=== PATIENT | female | born 1930 | race Caucasian/White ===

== ENCOUNTER 2018-05-09 16:38 | Inpatient (IN) | payer OTHER ==
--- NOTE | 2018-05-09 16:47 | PDOC ---
Rapid Medical Evaluation Chief Complaint: Pain Time Seen by Provider: 05/09/18 16:43 Medical Evaluation: Allergies Allergy/AdvReac Type Severity Reaction Status Date / Time fish derived Allergy Verified 05/09/18 16:43 shellfish derived Allergy Verified 05/09/18 16:43 aspirin AdvReac Intermediate Verified 05/09/18 16:43 05/09/18 16:43 Pt presents to the ED for evaluation of abdominal pain starting this morning. She states she took omeprazole this morning with no relief of her symptoms. PSHx of cholecystectomy. Admits to nausea and vomiting Exam: TTP of the Epigastric region Orders; Labs, urine, IV Pt to proceed to the ED for further evaluatin Discharge Disposition - Diagnosis Abdominal pain Qualifiers: Abdominal location: epigastric Qualified Code(s): R10.13 - Epigastric pain - Referrals - Patient Instructions - Post Discharge Activity
[2018-05-09 17:14] LABS: BASO % 0.2 % (0-2.0); EOS % 1.2 % (0-4.5); HEMATOCRIT 37.9 % (32.4-45.2); HEMOGLOBIN 12.5 GM/dL (10.7-15.3); LYMPH % 12.4 % (8-40); MCH 28.6 pg (25.7-33.7); MEAN CELL VOLUME 86.6 fl (80-96); MEAN PLT VOLUME 8.8 fl (7.5-11.1); MONO % 6.7 % (3.8-10.2); NEUT % 79.5 % (42.8-82.8); PLATELET COUNT 166 K/MM3 (134-434); RBC 4.37 M/mm3 (3.60-5.2); WHITE BLOOD COUNT 6.8 K/mm3 (4.0-10.0)
[2018-05-09 17:18] LABS: EPI CELLS 1.4 /HPF (0-5); URINE APPEARANCE CLEAR; URINE BACTERIA 5.2 /hpf (NEGATIVE); URINE BILIRUBIN NEGATIVE (NEGATIVE); URINE CASTS 6 /hpf (0-8); URINE COLOR YELLOW; URINE GLUCOSE (UA) NEGATIVE (NEGATIVE); URINE KETONE NEGATIVE (NEGATIVE); URINE LEUK ESTERASE 2+ (NEGATIVE); URINE NITRITE NEGATIVE (NEGATIVE); URINE PROTEIN NEGATIVE (NEGATIVE); URINE RBC 3 /hpf (0-4); URINE UROBILINOGEN 0.2 mg/dL (0.2-1.0); URINE WBC 30 /hpf (0-5)
[2018-05-09 17:35] LABS: ALBUMIN 3.7 g/dl (3.4-5.0); ALK PHOS 104 U/L (45-117); ANION GAP 3 MMOL/L (8-16); BLOOD UREA NITROGEN 14 mg/dL (7-18); CALCIUM 8.5 mg/dL (8.5-10.1); CHLORIDE 104 mmol/L (98-107); CO2 29 mmol/L (21-32); CREATININE 0.8 mg/dL (0.55-1.3); GLUCOSE,RANDOM 141 mg/dL (74-106); LIPASE 139 U/L (73-393); SGOT/AST 31 U/L (15-37); SGPT/ALT 32 U/L (13-61); SODIUM 136 mmol/L (136-145); TOT PROT 7.3 g/dl (6.4-8.2)
--- NOTE | 2018-05-09 18:44 | PDOC ---
History of Present Illness - General History Source: Patient, Family Exam Limitations: No Limitations - History of Present Illness Initial Comments: 05/09/18 19:02 The patient is an 87 year old female with a past medical history of diabetes, HTN, and GERD here today for evaluation of abdominal pain. The patients granddaughter reports that the patient has been having abdominal pain in the left upper and lower quadrant, a headache, mild nausea, body aches, and bloating. Patient reports that the abdominal pain is worse with eating and that her last bowel movement was this morning and was small but normal. Patients daughter notes that the patients son is staying with the patient and has a cold. Patient denies headache, lightheadedness. Denies fever, chills. Denies chest pain, shortness of breath. Denies nausea, vomiting, diarrhea. Denies urinary symptoms. Allergies: fish derived, shellfish derived, aspirin Surgical history: cholecystectomy <Alex Rivera - Last Filed: 05/09/18 19:38> <Fifi Castrejon - Last Filed: 05/10/18 01:10> - General Chief Complaint: Pain Stated Complaint: ABD PAIN Time Seen by Provider: 05/09/18 16:43 Past History <Alex Rivera - Last Filed: 05/09/18 19:38> - Past Medical History Anemia: No Asthma: No Cancer: No Cardiac Disorders: No CVA: No COPD: No CHF: No Dementia: No Diabetes: Yes (NIDDM) GI Disorders: No Disorders: No HTN: Yes Hypercholesterolemia: No Liver Disease: No Seizures: No Thyroid Disease: No - Surgical History Abdominal Surgery: No Appendectomy: No Cardiac Surgery: No Cholecystectomy: Yes Lung Surgery: No Neurologic Surgery: No Orthopedic Surgery: No - Immunization History Immunization Up to Date: No - Suicide/Smoking/Psychosocial Hx Smoking History: Never smoked Have you smoked in the past 12 months: No Hx Alcohol Use: No Drug/Substance Use Hx: No Substance Use Type: None Hx Substance Use Treatment: No <Fifi Castrejon - Last Filed: 05/10/18 01:10> - Past Medical History Allergies/Adverse Reactions: Allergies Allergy/AdvReac Type Severity Reaction Status Date / Time fish derived Allergy Verified 05/09/18 16:43 shellfish derived Allergy Verified 05/09/18 16:43 aspirin AdvReac Intermediate Verified 05/09/18 16:43 Home Medications: Ambulatory Orders Glipizide 10 mg PO DAILY 12/26/13 Amlodipine Besylate 5 mg PO DAILY 10/02/14 Acetaminophen [Tylenol -] 1,000 mg PO Q6H #100 tablet 02/03/16 Mag Hydrox/Al Hydrox/Simeth [Mylanta Oral Suspension -] 30 ml PO Q6H PRN #1 bot 02/03/16 Apixaban [Eliquis -] 2.5 mg PO BID 01/22/18 Calcium 600-Vit D3 200 Tablet 1 tab PO DAILY 01/22/18 Colace 100 mg PO BID 01/22/18 Januvia 100 mg PO DAILY 01/22/18 Metoprolol Tartrate 50 mg PO BID 01/22/18 Omeprazole 40 mg PO HS 01/22/18 Zocor 20 mg PO HS 01/22/18 hydrALAZINE HCL 10 mg PO DAILY 01/22/18 Review of Systems - Review of Systems Able to Perform ROS?: Yes Comments:: 05/09/18 19:03 GENERAL/CONSTITUTIONAL: +headache. No fever or chills. No weakness. HEAD, EYES, EARS, NOSE AND THROAT: No change in vision. No ear pain or discharge. No sore throat. GASTROINTESTINAL: +nausea +abdominal pain. No vomiting, diarrhea or constipation. GENITOURINARY: No dysuria, frequency, or change in urination. CARDIOVASCULAR: No chest pain or shortness of breath. RESPIRATORY: No cough, wheezing, or hemoptysis. MUSCULOSKELETAL: No joint or muscle swelling or pain. No neck or back pain. SKIN: No rash NEUROLOGIC: No headache, vertigo, loss of consciousness, or change in strength/ sensation. ENDOCRINE: No increased thirst. No abnormal weight change. HEMATOLOGIC/LYMPHATIC: No anemia, easy bleeding, or history of blood clots. ALLERGIC/IMMUNOLOGIC: No hives or skin allergy. <Alex Rivera - Last Filed: 05/09/18 19:38> *Physical Exam - Vital Signs Last Vital Signs Temp Pulse Resp BP Pulse Ox 98.4 F 98 H 18 148/75 100 05/09/18 16:43 05/09/18 16:43 05/09/18 16:43 05/09/18 16:43 05/09/18 16:43 - Physical Exam Comments: 05/09/18 19:03 Constitutional: Awake, alert, oriented. No acute distress. Head: Normocephalic. Atraumatic Eyes: PERRL. EOMI. Conjunctivae are not pale. ENT: Mucous membranes are moist and intact. Posterior pharynx without exudates or erythema. Uvula midline. Neck: Supple. Full ROM. No lymphadenopathy. Cardiovascular: Regular rate. Regular rhythm. S1, S2 regular. Distal pulses are 2+ and symmetric. Pulmonary/Chest: No evidence of respiratory distress. Clear to auscultation bilaterally No wheezing, rales or rhonchi. Abdominal: +epigastric, left upper quadrant, left lower quadrant, and suprapubic pain. Soft and non-distended. No rebound, guarding or rigidity. No organomegaly. No palpable masses. Good bowel sounds. Back: No CVA tenderness. Musculoskeletal: No edema. No cyanosis. No clubbing. Full range of motion in all extremities. No calf tenderness. Radial/pedal pulses are intact and 2+ bilaterally Skin: Skin is warm and dry. No petechiae. No purpura. Neurological: Alert and oriented to person, place, and time. Cranial nerves II -XII are grossly intact. Normal speech. Strength is grossly symmetric. No sensory deficits. Psychiatric: Good eye contact. Normal interaction, affect and behavior. <Alex Rivera - Last Filed: 05/09/18 19:38> - Vital Signs Last Vital Signs Temp Pulse Resp BP Pulse Ox 98.4 F 98 H 18 148/75 100 05/09/18 16:43 05/09/18 16:43 05/09/18 16:43 05/09/18 16:43 05/09/18 16:43 <Fifi Castrejon - Last Filed: 05/10/18 01:10> Heart Score/ECG Review - ECG Intrepretation Comment:: 05/09/18 19:40 sinus at 93, poor r wave progressin, baseline artifact, no acute st/t wave findings <Fifi Castrejon - Last Filed: 05/10/18 01:10> ED Treatment Course - LABORATORY CBC & Chemistry Diagram: 05/09/18 16:51 05/09/18 16:51 - ADDITIONAL ORDERS Additional order review: Laboratory Results 05/09/18 05/09/18 16:57 16:51 Sodium 136 Potassium 4.0 Chloride 104 Carbon Dioxide 29 Anion Gap 3 L BUN 14 Creatinine 0.8 Creat Clearance w eGFR 67.54 Random Glucose 141 H Calcium 8.5 Total Bilirubin 1.0 AST 31 ALT 32 Alkaline Phosphatase 104 Total Protein 7.3 Albumin 3.7 Lipase 139 Urine Color Yellow Urine Appearance Clear Urine pH 6.0 Ur Specific [place] 1.019 Urine Protein Negative Urine Glucose (UA) Negative Urine Ketones Negative Urine Blood Negative Urine Nitrite Negative Urine Bilirubin Negative Urine Urobilinogen 0.2 Ur Leukocyte Esterase 2+ H Urine WBC (Auto) 30 Urine RBC (Auto) 3 Urine Casts (Auto) 6 U Epithel Cells (Auto) 1.4 Urine Bacteria (Auto) 5.2 05/09/18 16:51 RBC 4.37 MCV 86.6 MCHC 33.0 RDW 14.0 MPV 8.8 Neutrophils % 79.5 Lymphocytes % 12.4 Monocytes % 6.7 Eosinophils % 1.2 D Basophils % 0.2 <Alex Rivera - Last Filed: 05/09/18 19:38> - LABORATORY CBC & Chemistry Diagram: 05/09/18 16:51 05/09/18 16:51 - ADDITIONAL ORDERS Additional order review: Laboratory Results 05/09/18 05/09/18 16:57 16:51 Sodium 136 Potassium 4.0 Chloride 104 Carbon Dioxide 29 Anion Gap 3 L BUN 14 Creatinine 0.8 Creat Clearance w eGFR 67.54 Random Glucose 141 H Calcium 8.5 Total Bilirubin 1.0 AST 31 ALT 32 Alkaline Phosphatase 104 Total Protein 7.3 Albumin 3.7 Lipase 139 Urine Color Yellow Urine Appearance Clear Urine pH 6.0 Ur Specific [place] 1.019 Urine Protein Negative Urine Glucose (UA) Negative Urine Ketones Negative Urine Blood Negative Urine Nitrite Negative Urine Bilirubin Negative Urine Urobilinogen 0.2 Ur Leukocyte Esterase 2+ H Urine WBC (Auto) 30 Urine RBC (Auto) 3 Urine Casts (Auto) 6 U Epithel Cells (Auto) 1.4 Urine Bacteria (Auto) 5.2 05/09/18 16:51 RBC 4.37 MCV 86.6 MCHC 33.0 RDW 14.0 MPV 8.8 Neutrophils % 79.5 Lymphocytes % 12.4 Monocytes % 6.7 Eosinophils % 1.2 D Basophils % 0.2 <Fifi Castrejon - Last Filed: 05/10/18 01:10> Medical Decision Making - Medical Decision Making 05/09/18 18:57 a/p: 87yo female bib her granddaughter for abd pain x 1 day assoc with nausea and body aches -son has a cold at home -nausea today -last bm today -denies dysuria -epigastric and L sided abd pain -labs sent from [facility] reviewed - uti, no elevated lft -will add trop -will obtain ekg, cxr, ct abd/pelvis -will hydrate, maalox, zofran, tylenol for pain -will monitor and reassess 05/09/18 20:45 cxr clear lipase negaitve 05/09/18 21:46 flu negative 05/10/18 00:38 pt is s/p travon small bowel ileus and enteritis on ct pt still with mild abd pain, no nausea now will place in obs for bowel rest 05/10/18 00:45 discussed results with the patient. will place in obs for npo, ivf hydration, bowel rest 05/10/18 01:10 case discussed with LORENA who accepts pt to service <Fifi Castrejon - Last Filed: 05/10/18 01:10> *DC/Admit/Observation/Transfer - Attestations Scribe Attestion: 05/09/18 19:38 Documentation prepared by NORMAN Serna, acting as biomedical scientist for Fifi Castrejon DO. <Alex Rivera - Last Filed: 05/09/18 19:38> - Discharge Dispostion Decision to Admit order: Yes - Attestations Physician Attestion: 05/10/18 00:40 I, Dr. Fifi Castrejon DO, attest that this document has been prepared under my direction and personally reviewed by me in its entirety. I further attest, that it accurately reflects all work, treatment, procedures and medical decision -making performed by me. <Fifi Castrejon - Last Filed: 05/10/18 01:10> Diagnosis at time of Disposition: Ileus, unspecified, UTI (urinary tract infection) Abdominal pain Qualifiers: Abdominal location: epigastric Qualified Code(s): R10.13 - Epigastric pain - Discharge Dispostion Condition at time of disposition: Fair
[2018-05-09] MEDS ORDERED: SODIUM CHLORIDE 0.9% 1000 ML INFUS.BAG IV ONE (18:54)
[2018-05-09] MEDS ORDERED: ACETAMINOPHEN 1000 MG/100 ML VIAL (NON FORMULARY) IVPB ONE (18:54)
[2018-05-09] MEDS ORDERED: MAG HYDROX/AL HYDROX/SIMETH 30 ML UNIT-DOSE CUP PO ONE (18:54)
[2018-05-09] MEDS ORDERED: ONDANSETRON 4 MG/2 ML VIAL IVPUSH ONE (18:54)
[2018-05-09] MEDS ORDERED: CEFTRIAXONE 1 GM in DEXTROSE 5%-WATER - 100 ML IVPB ONE (18:55)
[2018-05-09] MEDS ORDERED: ONDANSETRON 4 MG/2 ML VIAL ONE (20:12)
[2018-05-09] MEDS ORDERED: MAG HYDROX/AL HYDROX/SIMETH 30 ML UNIT-DOSE CUP ONE (20:12)
[2018-05-09] MEDS ORDERED: CEFTRIAXONE 1 GM/50 ML BAG ONE (20:12)
[2018-05-09] MEDS ORDERED: ACETAMINOPHEN INJECTION 100 ML IVPB ONE (20:12)
--- NOTE | 2018-05-10 01:06 | PN ---
Teaching Attending Note Name of Resident: Hernán Alfaro ATTENDING PHYSICIAN STATEMENT I saw and evaluated the patient. I reviewed the resident's note and discussed the case with the resident. I agree with the resident's findings and plan as documented. SUBJECTIVE: Patient is an 87 year old woman with a past medical history of NIDDM, HTN, RLE DVT and PE (on Eliquis) and GERD here today for evaluation of abdominal pain. The patients granddaughter reports that the patient has been having abdominal pain in the left upper and lower quadrant, a headache, mild nausea, body aches, and bloating. Patient reports that the abdominal pain is worse with eating and that her last bowel movement was this morning and was small but normal. Patient s daughter notes that the patients son is staying with the patient and has a cold. Patient denies headache, lightheadedness. Denies fever, chills. Denies chest pain, shortness of breath. Denies nausea, vomiting, diarrhea. Denies urinary symptoms. OBJECTIVE: Alert Vital Signs Period Temp Pulse Resp BP Sys/Dobbins Pulse Ox Last 24 Hr 98.4 F 98 18 148/75 100 HEENT: No Jaundice, eye redness or discharge, PERRLA, EOMI. Normocephalic, atraumatic. External ears are normal and hearing is grossly intact. No nasal discharge. Neck: Supple, nontender. No palpable adenopathy or thyromegaly. No JVD Chest: Good effort. Clear to auscultation and percussion. Heart: Regular. No S3, rub or murmur Abdomen: Not distended, soft, epigastric, periumblical and lower abdominal tenderness and no HSM. No rebound or guarding. Normal bowel sounds. Ext: Peripheral pulses intact. No leg edema. Skin: Warm and dry. No petechiae, rash or ecchymosis. Neuro: Alert. Oriented x3. CN 2-12 grossly intact. Sensation grossly intact in all four extremities and DTR are symmetric. Psych: Appropriate mood and affect. Good insight. Current Medications Generic Name Dose Route Start Last Admin Trade Name Freq PRN Reason Stop Dose Admin Sodium Chloride 1,000 mls @ 75 mls/hr 05/10/18 00:45 05/10/18 02:11 Normal Saline - IV 75 mls/hr ASDIR MICHAEL Administration Home Medications Medication Instructions Recorded Glipizide 10 mg PO DAILY 12/26/13 Amlodipine Besylate 5 mg PO DAILY 10/02/14 Acetaminophen [Tylenol -] 1,000 mg PO Q6H #100 tablet 02/03/16 Mag Hydrox/Al Hydrox/Simeth 30 ml PO Q6H PRN #1 bot 02/03/16 [Mylanta Oral Suspension -] Apixaban [Eliquis -] 2.5 mg PO BID 01/22/18 Calcium 600-Vit D3 200 Tablet 1 tab PO DAILY 01/22/18 Colace 100 mg PO BID 01/22/18 Januvia 100 mg PO DAILY 01/22/18 Metoprolol Tartrate 50 mg PO BID 01/22/18 Omeprazole 40 mg PO HS 01/22/18 Zocor 20 mg PO HS 01/22/18 hydrALAZINE HCL 10 mg PO DAILY 01/22/18 Abnormal Lab Results 05/09/18 05/09/18 16:51 16:57 Anion Gap 3 L Random Glucose 141 H Ur Leukocyte Esterase 2+ H ASSESSMENT AND PLAN: 1. Small bowel ileus and enteritis - CT scan of the abdomen and pelvis showed small bowel enteritis and ileus. May be a consequence of diabetic gastropathy. There is no evidence of infectious enteritis. Has retroperitoneal lymphadenopathy which will be monitored. Will keep her NPO, treat with IV protonix and zofran PRN. UTI being treated with Rocephin. No acute abnormality on CXR or EKG. Continue IV NS and consult GI. 2. DM For now, we will hold the home diabetes drugs and implement sliding scale insulin regimen. Provide comprehensive diabetes care with patient teaching and counseling about the importance of adherence to prescribed diabetes regimen, euglycemia, eye care and foot care. 3. Hypertension - Restart outpatient antihypertensive drugs and revise regimen to ensure smooth [id number] good BP control. Nonpharmacologic measures to control hypertension like weight loss, salt restriction and exercise discussed. 4. DVT prophylaxis - On Eliquis for PE and DVT 5. Advance directives - Full code
[2018-05-10] MEDS: SODIUM CHLORIDE 1,000 ML IV SCH ×2 (02:11→22:03)
--- NOTE | 2018-05-10 03:15 | HP ---
CHIEF COMPLAINT: abdominal pain PCP: Maryjane Sewell HISTORY OF PRESENT ILLNESS: Pt. is a an 87 y.o F presenting with abdominal pain for 1 day. Pt. states that it has been intermittent lasting ~30min but progressively worsening over the last day. Pt. states that she was nauseous on ED arrival but nausea has decreased since receiving Zofran. Pt. endorses headache(band distribution), generalized muscle and joint pains, decreased PO intake (finishes less than half the plate for "awhile now)," small loose bowel movement yesterday and subjective fever. Pt. denies chills, vomiting ,blood in the stool or urine, dizziness, lightheadedness, numbness/tingling, palpitations , changes in vision, chest pain or shortness of breath. Pt. states that she lives alone with a S[employer]IOR [employer] that visits for a few hours each day. She states she takes her medications everyday as prescribed. ER course was notable for: (1)CT A/P, EKG, CXR, labs, Trop, lipase (2) Zofran, Ceftriaxone, IVF (3)Ofirmev Recent Travel: No PAST MEDICAL HISTORY: NIDDM, HTN, DVTs, PE(last 2015), GERD, Diverticulosis, Hx. 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 Family History: Mom skin cacer @ 89 Allergies fish derived Allergy (Verified 05/09/18 16:43) shellfish derived Allergy (Verified 05/09/18 16:43) aspirin Adverse Reaction (Intermediate, Verified 05/09/18 16:43) HOME MEDICATIONS: Home Medications Medication Instructions Recorded Glipizide 10 mg PO DAILY 12/26/13 Amlodipine Besylate 5 mg PO DAILY 10/02/14 Acetaminophen [Tylenol -] 1,000 mg PO Q6H #100 tablet 02/03/16 Mag Hydrox/Al Hydrox/Simeth 30 ml PO Q6H PRN #1 bot 02/03/16 [Mylanta Oral Suspension -] Apixaban [Eliquis -] 2.5 mg PO BID 01/22/18 Calcium 600-Vit D3 200 Tablet 1 tab PO DAILY 01/22/18 Colace 100 mg PO BID 01/22/18 Januvia 100 mg PO DAILY 01/22/18 Metoprolol Tartrate 50 mg PO BID 01/22/18 Omeprazole 40 mg PO HS 01/22/18 Zocor 20 mg PO HS 01/22/18 hydrALAZINE HCL 10 mg PO DAILY 01/22/18 REVIEW OF SYSTEMS As Per [facility] PHYSICAL EXAMINATION Vital Signs - 24 hr 05/09/18 16:43 Temperature 98.4 F Pulse Rate 98 H Respiratory 18 Rate Blood Pressure 148/75 O2 Sat by Pulse 100 Oximetry (%) GENERAL: Awake, alert, and oriented to person and place only, in no acute distress. HEAD: Normal with no signs of trauma. EYES: Pupils equal, round and reactive to light, extraocular movements intact, sclera anicteric, conjunctiva clear. EARS, NOSE, THROAT: Ears normal, nares patent, oropharynx clear without exudates. Dry mucous membranes. NECK: Normal range of motion, supple without lymphadenopathy, JVD, carotid bruit or masses. LUNGS: Breath sounds equal, bibasilar ronchi. No wheezes. No accessory muscle use. HEART: Regular rate and rhythm, normal S1 and S2 with murmur ABDOMEN: Soft, epigastric tenderness, not distended, hyperactive bowel sounds, no guarding, no rebound, no masses. Right mid clavicular line surgical scar and left sub xyphoid scar MUSCULOSKELETAL: Normal range of motion at all joints. No bony deformities or tenderness. No CVA tenderness. UPPER EXTREMITIES: 2+ radial pulses, warm, well-perfused. No cyanosis. No clubbing. No peripheral edema. LOWER EXTREMITIES: 2+ dorsal pedal pulses, warm, well-perfused. No calf tenderness. No peripheral edema. NEUROLOGICAL: Cranial nerves II-XII intact. Normal speech. PSYCHIATRIC: Cooperative. Good eye contact. Tangential thinking. SKIN: Warm, dry, normal turgor, no rashes or lesions noted, normal capillary refill. Laboratory Results - last 24 hr 05/09/18 05/09/18 05/09/18 16:51 16:51 16:57 WBC 6.8 RBC 4.37 Hgb 12.5 Hct 37.9 MCV 86.6 MCH 28.6 MCHC 33.0 RDW 14.0 Plt Count 166 MPV 8.8 Absolute Neuts (auto) 5.4 Neutrophils % 79.5 Lymphocytes % 12.4 Monocytes % 6.7 Eosinophils % 1.2 D Basophils % 0.2 Nucleated RBC % 0 Sodium 136 Potassium 4.0 Chloride 104 Carbon Dioxide 29 Anion Gap 3 L BUN 14 Creatinine 0.8 Creat Clearance w eGFR 67.54 Random Glucose 141 H Calcium 8.5 Total Bilirubin 1.0 AST 31 ALT 32 Alkaline Phosphatase 104 Troponin I < 0.02 Total Protein 7.3 Albumin 3.7 Lipase 139 Urine Color Yellow Urine Appearance Clear Urine pH 6.0 Ur Specific [place] 1.019 Urine Protein Negative Urine Glucose (UA) Negative Urine Ketones Negative Urine Blood Negative Urine Nitrite Negative Urine Bilirubin Negative Urine Urobilinogen 0.2 Ur Leukocyte Esterase 2+ H Urine WBC (Auto) 30 Urine RBC (Auto) 3 Urine Casts (Auto) 6 U Epithel Cells (Auto) 1.4 Urine Bacteria (Auto) 5.2 Influenza A (Rapid) Influenza B (Rapid) 05/09/18 20:59 WBC RBC Hgb Hct MCV MCH MCHC RDW Plt Count MPV Absolute Neuts (auto) Neutrophils % Lymphocytes % Monocytes % Eosinophils % Basophils % Nucleated RBC % Sodium Potassium Chloride Carbon Dioxide Anion Gap BUN Creatinine Creat Clearance w eGFR Random Glucose Calcium Total Bilirubin AST ALT Alkaline Phosphatase Troponin I Total Protein Albumin Lipase Urine Color Urine Appearance Urine pH Ur Specific [place] Urine Protein Urine Glucose (UA) Urine Ketones Urine Blood Urine Nitrite Urine Bilirubin Urine Urobilinogen Ur Leukocyte Esterase Urine WBC (Auto) Urine RBC (Auto) Urine Casts (Auto) U Epithel Cells (Auto) Urine Bacteria (Auto) Influenza A (Rapid) Negative Influenza B (Rapid) Negative ASSESSMENT/PLAN: Pt. is a an 87 y.o F w/ NIDDM, HTN, DVTs, PE(last 2015), GERD, Diverticulosis, Hx. of colon polyps( last colonoscopy 2012-benign) presenting with abdominal pain for 1 day. #Abdominal pain LFTs wnl Epigastric in location- hold home omeprazole, c/w IV Protonix 40mg daily CT-A/P showed mild intra hepatic duct dilation, absent gallbladder, several segments of small bowel appear mildly thickened and distended, some nodules in the central mesenteric fat suggesting lymph nodes(largest 8 x 5 mm), haziness in mid epigastric mesenteric fat, FOBT - GI consult (Dr. Brown) appreciated Consider avoiding Zofran given prolonged QTc (489) #Positive UA 2+ LE, 30 WBCs will treat for UTI- c/w Ceftriaxone 1 gm daily f/u UCx. Last UTI in 2013- pansensitive #NIDDM f/u A1c- if elevated consider diagnosis of diabetic gastropathy as the etiology for ileus hold oral meds ISS TIDAC BGM TIDAC #HTN c/w home meds ( Metoprolol, Hydralazine, Norvasc)- will need medication reconciliation Last echo (11/30/15): EF: 50%, RV pressure 40-50 mmHg, mild MR, mild-mod. TR, mod. annular calcification, mod. aortic sclerosis #HLD c/w home meds(Zocor) #FEN NS @ 75ml/hr monitor electrolytes and replete as needed NPO except for meds- for bowel rest #DVT Ppx. c/w Eliquis Visit type - Emergency Visit Emergency Visit: Yes ED Registration Date: 05/10/18 Care time: The patient presented to the Emergency Department on the above date and was hospitalized for further evaluation of their emergent condition. - New Patient This patient is new to me today: Yes Date on this admission: 05/10/18 - Critical Care Critical Care patient: No
[2018-05-10] MEDS ORDERED: LACTATED RINGERS SOLUTION 1,000 ML IV SCH (04:45)
[2018-05-10 05:54] VITALS: BMI 25.6
[2018-05-10] MEDS: INSULIN SLIDING SCALE (NOVOLOG) 1 VIAL SQ SCH ×3 (06:04→17:51)
[2018-05-10] MEDS ORDERED: cefTRIAXone SODIUM 1 GM VIAL ONE (09:03)
[2018-05-10] MEDS ORDERED: DEXTROSE 5%-WATER - 50 ML IVPB ONE (09:03)
--- NOTE | 2018-05-10 09:06 | PN ---
Physical Exam: SUBJECTIVE: Patient seen and examined at bedside- no acute events overnight' patient was having slight nausea this AM but no diarrhea or vomiting; thinks her pain is slightly improved but is having reflux symptoms. denies fever/CP/SOB /V OBJECTIVE: Vital Signs Period Temp Pulse Resp BP Sys/Dobbins Pulse Ox Last 24 Hr 98.1 F-98.4 F 93-98 18-18 143-148/75-80 91-100 GENERAL: The patient is awake, alert, and fully oriented, in no acute distress. EYES: PEERLA: EOMI; no scleral icterus NECK: no JVD; no lymphadenopathy LUNGS:CTA B/L; no rales, rhonchi or wheezing HEART: Regular rate and rhythm, S1, S2 without murmur, rub or gallop. ABDOMEN: Soft, slight midline and epigastric tenderness upon palpation; +BS in all 4 quadrants EXTREMITIES: 2+ pulses, warm, well-perfused, no edema. . PSYCH: Normal mood, normal affect. SKIN: Warm, dry, normal turgor, no rashes or lesions noted Laboratory Results - last 24 hr 05/09/18 05/09/18 05/09/18 16:51 16:51 16:57 WBC 6.8 RBC 4.37 Hgb 12.5 Hct 37.9 MCV 86.6 MCH 28.6 MCHC 33.0 RDW 14.0 Plt Count 166 MPV 8.8 Absolute Neuts (auto) 5.4 Neutrophils % 79.5 Lymphocytes % 12.4 Monocytes % 6.7 Eosinophils % 1.2 D Basophils % 0.2 Nucleated RBC % 0 Sodium 136 Potassium 4.0 Chloride 104 Carbon Dioxide 29 Anion Gap 3 L BUN 14 Creatinine 0.8 Creat Clearance w eGFR 67.54 POC Glucometer Random Glucose 141 H Calcium 8.5 Total Bilirubin 1.0 AST 31 ALT 32 Alkaline Phosphatase 104 Troponin I < 0.02 Total Protein 7.3 Albumin 3.7 Lipase 139 Urine Color Yellow Urine Appearance Clear Urine pH 6.0 Ur Specific [place] 1.019 Urine Protein Negative Urine Glucose (UA) Negative Urine Ketones Negative Urine Blood Negative Urine Nitrite Negative Urine Bilirubin Negative Urine Urobilinogen 0.2 Ur Leukocyte Esterase 2+ H Urine WBC (Auto) 30 Urine RBC (Auto) 3 Urine Casts (Auto) 6 U Epithel Cells (Auto) 1.4 Urine Bacteria (Auto) 5.2 Stool Occult Blood Influenza A (Rapid) Influenza B (Rapid) 05/09/18 05/10/18 05/10/18 20:59 03:07 05:37 WBC RBC Hgb Hct MCV MCH MCHC RDW Plt Count MPV Absolute Neuts (auto) Neutrophils % Lymphocytes % Monocytes % Eosinophils % Basophils % Nucleated RBC % Sodium Potassium Chloride Carbon Dioxide Anion Gap BUN Creatinine Creat Clearance w eGFR POC Glucometer 130 Random Glucose Calcium Total Bilirubin AST ALT Alkaline Phosphatase Troponin I Total Protein Albumin Lipase Urine Color Urine Appearance Urine pH Ur Specific [place] Urine Protein Urine Glucose (UA) Urine Ketones Urine Blood Urine Nitrite Urine Bilirubin Urine Urobilinogen Ur Leukocyte Esterase Urine WBC (Auto) Urine RBC (Auto) Urine Casts (Auto) U Epithel Cells (Auto) Urine Bacteria (Auto) Stool Occult Blood Negative Influenza A (Rapid) Negative Influenza B (Rapid) Negative Active Medications Generic Name Dose Route Start Last Admin Trade Name Freq PRN Reason Stop Dose Admin Amlodipine Besylate 5 mg 05/10/18 10:00 Norvasc - PO DAILY [facility] Apixaban 2.5 mg 05/10/18 10:00 Eliquis - PO BID [facility] Atorvastatin Calcium 10 mg 05/10/18 22:00 Lipitor - PO HS MICHAEL Docusate Sodium 100 mg 05/10/18 10:00 Colace - PO BID [facility] Hydralazine HCl 10 mg 05/10/18 10:00 Apresoline - PO DAILY [facility] Sodium Chloride 1,000 mls @ 75 mls/hr 05/10/18 00:45 05/10/18 02:11 Normal Saline - IV 75 mls/hr ASDIR MICHAEL Administration Ceftriaxone Sodium 1 gm/ 50 mls @ 100 mls/hr 05/10/18 10:00 Dextrose IVPB DAILY [facility] Insulin Aspart 1 vial 05/10/18 07:00 05/10/18 06:04 Novolog Vial Sliding Scale - SQ Not Given TIDAC [facility] Protocol Metoprolol Tartrate 50 mg 05/10/18 10:00 Lopressor - PO BID MICHAEL Pantoprazole Sodium 40 mg 05/10/18 10:00 Protonix Iv IVPUSH DAILY [facility] ASSESSMENT/PLAN: Pt. is a an 87 y.o F w/ NIDDM, HTN, DVTs, PE(last 2015), GERD, Diverticulosis, Hx. of colon polyps( last colonoscopy 2012-benign) presenting with abdominal pain for 1 day. #Abdominal pain LFTs wnl Epigastric in location-protonix IV [address]-A/P showed mild intra hepatic duct dilation, absent gallbladder, several segments of small bowel appear mildly thickened and distended, some nodules in the central mesenteric fat suggesting lymph nodes(largest 8 x 5 mm), haziness in mid epigastric mesenteric fat, GI consult pending IV ceftriaxone and flagyl on board #Positive UA 2+ LE, 30 WBCs ceftriaxone 1 gram daily f/u UCx. #NIDDM Hba1c came back at 7.3 ISS BGMS ACHS #HTN c/w home meds lopressor 50 BID Hydralazine 10mg Norvasc 5mg #HLD c/w lipitor 10 #FEN NS @ 75ml/hr monitor electrolytes and replete as needed NPO except for meds- for bowel rest Problem List - Problems (1) Abdominal pain Code(s): R10.9 - UNSPECIFIED ABDOMINAL PAIN Qualifiers: Abdominal location: epigastric Qualified Code(s): R10.13 - Epigastric pain (2) Ileus, unspecified Code(s): K56.7 - ILEUS, UNSPECIFIED (3) Urinary tract infection Code(s): N39.0 - URINARY TRACT INFECTION, SITE NOT SPECIFIED (4) Diabetes Code(s): E11.9 - TYPE 2 DIABETES MELLITUS WITHOUT COMPLICATIONS Qualifiers: Diabetes mellitus type: type 2 Diabetes mellitus complication status: without complication Visit type - Emergency Visit Emergency Visit: Yes ED Registration Date: 05/10/18 Care time: The patient presented to the Emergency Department on the above date and was hospitalized for further evaluation of their emergent condition. - New Patient This patient is new to me today: Yes Date on this admission: 05/10/18 - Critical Care Critical Care patient: No
[2018-05-10] MEDS: PANTOPRAZOLE SODIUM 40 MG VIAL IVPUSH SCH (10:12)
[2018-05-10] MEDS: hydrALAZINE HCL 10 MG TABLET PO SCH (10:13)
[2018-05-10] MEDS: DOCUSATE SODIUM 100 MG CAPSULE (FP) PO SCH ×2 (10:13→22:04)
[2018-05-10] MEDS: METOPROLOL TARTRATE 50 MG TABLET (FP) PO SCH ×2 (10:13→22:04)
[2018-05-10] MEDS: amLODIPine BESYLATE 5 MG TABLET (FP) PO SCH (10:13)
[2018-05-10] MEDS: APIXABAN 2.5 MG TABLET PO SCH ×2 (10:13→22:04)
[2018-05-10] MEDS: CEFTRIAXONE 1 GM in DEXTROSE 5%-WATER - 50 ML IVPB SCH (10:13)
[2018-05-10 10:24] LABS: HEMATOCRIT 34.5 % (32.4-45.2); HEMOGLOBIN 11.1 GM/dL (10.7-15.3); MCH 27.9 pg (25.7-33.7); MCHC 32.3 g/dl (32.0-36.0); MEAN CELL VOLUME 86.5 fl (80-96); MEAN PLT VOLUME 8.4 fl (7.5-11.1); PLATELET COUNT 131 K/MM3 (134-434); RBC 3.99 M/mm3 (3.60-5.2); RDW 14.1 % (11.6-15.6)
[2018-05-10 10:51] LABS: ANION GAP 5 MMOL/L (8-16); BLOOD UREA NITROGEN 9 mg/dL (7-18); CALCIUM 7.5 mg/dL (8.5-10.1); CHLORIDE 104 mmol/L (98-107); CO2 28 mmol/L (21-32); CREATININE 0.7 mg/dL (0.55-1.3); GLUCOSE,RANDOM 137 mg/dL (74-106); PHOSPHOROUS 2.3 mg/dL (2.5-4.9); POTASSIUM 3.8 mmol/L (3.5-5.1); SODIUM 138 mmol/L (136-145)
--- NOTE | 2018-05-10 11:50 | EKG ---
Test Reason : Blood Pressure : / mmHG Vent. Rate : 093 BPM Atrial Rate : 093 BPM P-R Int : 136 ms QRS Dur : 112 ms QT Int : 394 ms P-R-T Axes : 113 236 093 degrees QTc Int : 489 ms POOR DATA QUALITY, INTERPRETATION MAY BE ADVERSELY AFFECTED SUSPECT ARM LEAD REVERSAL, INTERPRETATION ASSUMES NO REVERSAL NORMAL SINUS RHYTHM LATERAL INFARCT (CITED ON OR BEFORE 12-JAN-2016) ABNORMAL ECG WHEN COMPARED WITH ECG OF 03-FEB-2016 13:18, QUESTIONABLE CHANGE IN INITIAL FORCES OF LATERAL LEADS Confirmed by FILOMENA MEREDITH MD ([id number]) on 05/10/2018 11:49:53 AM Referred By: Confirmed By:FILOMENA MEREDITH MD
--- NOTE | 2018-05-10 16:47 | PN ---
Teaching Attending Note Name of Resident: Madeline Mo ATTENDING PHYSICIAN STATEMENT I saw and evaluated the patient. I reviewed the resident's note and discussed the case with the resident. I agree with the resident's findings and plan as documented. SUBJECTIVE: Patient is feeling better , no fever or chills. OBJECTIVE: Vital Signs Temperature 98.6 F 05/10/18 13:20 Pulse Rate 80 05/10/18 13:20 Respiratory Rate 20 05/10/18 13:20 Blood Pressure 106/58 L 05/10/18 13:20 O2 Sat by Pulse Oximetry (%) 91 L 05/10/18 05:35 GENERAL: The patient is awake, alert, and fully oriented, in no acute distress. EYES: PEERLA: EOMI; no scleral icterus NECK: no JVD; no lymphadenopathy LUNGS:CTA B/L; no rales, rhonchi or wheezing HEART: Regular rate and rhythm, S1, S2 without murmur, rub or gallop. ABDOMEN: Soft, slight midline and epigastric tenderness upon palpation; positive for BS EXTREMITIES: 2+ pulses, warm, well-perfused, no edema. . PSYCH: Normal mood, normal affect. SKIN: Warm, dry, normal turgor, no rashes or lesions noted CBCD WBC 5.0 K/mm3 (4.0-10.0) 05/10/18 10:00 RBC 3.99 M/mm3 (3.60-5.2) 05/10/18 10:00 Hgb 11.1 GM/dL (10.7-15.3) 05/10/18 10:00 Hct 34.5 % (32.4-45.2) 05/10/18 10:00 MCV 86.5 fl (80-96) 05/10/18 10:00 MCHC 32.3 g/dl (32.0-36.0) 05/10/18 10:00 RDW 14.1 % (11.6-15.6) 05/10/18 10:00 Plt Count 131 K/MM3 (134-434) L D 05/10/18 10:00 MPV 8.4 fl (7.5-11.1) 05/10/18 10:00 CMP Sodium 138 mmol/L (136-145) 05/10/18 10:00 Potassium 3.8 mmol/L (3.5-5.1) 05/10/18 10:00 Chloride 104 mmol/L (98-107) 05/10/18 10:00 Carbon Dioxide 28 mmol/L (21-32) 05/10/18 10:00 Anion Gap 5 MMOL/L (8-16) L 05/10/18 10:00 BUN 9 mg/dL (7-18) 05/10/18 10:00 Creatinine 0.7 mg/dL (0.55-1.3) 05/10/18 10:00 Creat Clearance w eGFR 78.79 (>60) 05/10/18 10:00 Random Glucose 137 mg/dL (74-106) H 05/10/18 10:00 Calcium 7.5 mg/dL (8.5-10.1) L 05/10/18 10:00 Total Bilirubin 1.0 mg/dL (0.2-1) 05/09/18 16:51 AST 31 U/L (15-37) 05/09/18 16:51 ALT 32 U/L (13-61) 05/09/18 16:51 Alkaline Phosphatase 104 U/L (45-117) 05/09/18 16:51 Total Protein 7.3 g/dl (6.4-8.2) 05/09/18 16:51 Albumin 3.7 g/dl (3.4-5.0) 05/09/18 16:51 CARDIAC ENZYMES Troponin I < 0.02 ng/ml (0.00-0.05) 05/09/18 16:51 Current Medications Generic Name Dose Route Start Last Admin Trade Name Geraldine PRN Reason Stop Dose Admin Amlodipine Besylate 5 mg 05/10/18 10:00 05/10/18 10:13 Norvasc - PO 5 mg DAILY MICHAEL Administration Apixaban 2.5 mg 05/10/18 10:00 05/10/18 10:13 Eliquis - PO 2.5 mg BID MICHAEL Administration Atorvastatin Calcium 10 mg 05/10/18 22:00 Lipitor - PO HS MICHAEL Docusate Sodium 100 mg 05/10/18 10:00 05/10/18 10:13 Colace - PO 100 mg BID MICHAEL Administration Hydralazine HCl 10 mg 05/10/18 10:00 05/10/18 10:13 Apresoline - PO 10 mg DAILY MICHAEL Administration Sodium Chloride 1,000 mls @ 75 mls/hr 05/10/18 00:45 05/10/18 02:11 Normal Saline - IV 75 mls/hr ASDIR MICHAEL Administration Ceftriaxone Sodium 1 gm/ 50 mls @ 100 mls/hr 05/10/18 10:00 05/10/18 10:13 Dextrose IVPB 100 mls/hr DAILY MICHAEL Administration Metronidazole 500 mg in 100 mls @ 100 mls/hr 05/10/18 11:00 05/10/18 12:06 Flagyl 500mg Premixed Ivpb - IVPB 100 mls/hr Q8H-IV MICHAEL Administration Insulin Aspart 1 vial 05/10/18 07:00 05/10/18 12:00 Novolog Vial Sliding Scale - SQ Not Given TIDAC [facility] Protocol Metoprolol Tartrate 50 mg 05/10/18 10:00 05/10/18 10:13 Lopressor - PO 50 mg BID MICHAEL Administration Pantoprazole Sodium 40 mg 05/10/18 10:00 05/10/18 10:12 Protonix Iv IVPUSH 40 mg DAILY MICHAEL Administration Home Medications Medication Instructions Recorded Glipizide 10 mg PO DAILY 12/26/13 Amlodipine Besylate 5 mg PO DAILY 10/02/14 Acetaminophen [Tylenol -] 1,000 mg PO Q6H #100 tablet 02/03/16 Mag Hydrox/Al Hydrox/Simeth 30 ml PO Q6H PRN #1 bot 02/03/16 [Mylanta Oral Suspension -] Apixaban [Eliquis -] 2.5 mg PO BID 01/22/18 Calcium 600-Vit D3 200 Tablet 1 tab PO DAILY 01/22/18 Colace 100 mg PO BID 01/22/18 Januvia 100 mg PO DAILY 01/22/18 Metoprolol Tartrate 50 mg PO BID 01/22/18 Omeprazole 40 mg PO HS 01/22/18 Zocor 20 mg PO HS 01/22/18 hydrALAZINE HCL 10 mg PO DAILY 01/22/18 Urine Test Results Urine Color Yellow 05/09/18 16:57 Urine Appearance Clear 05/09/18 16:57 Urine pH 6.0 (5.0-8.0) 05/09/18 16:57 Ur Specific [place] 1.019 (1.010-1.035) 05/09/18 16:57 Urine Protein Negative (NEGATIVE) 05/09/18 16:57 Urine Glucose (UA) Negative (NEGATIVE) 05/09/18 16:57 Urine Ketones Negative (NEGATIVE) 05/09/18 16:57 Urine Blood Negative (NEGATIVE) 05/09/18 16:57 Urine Nitrite Negative (NEGATIVE) 05/09/18 16:57 Urine Bilirubin Negative (NEGATIVE) 05/09/18 16:57 Ur Leukocyte Esterase 2+ (NEGATIVE) H 05/09/18 16:57 Laboratory Tests 05/09/18 05/09/18 05/10/18 16:57 20:59 10:00 Hemoglobin A1c % 7.5 H Ur Leukocyte Esterase 2+ H Urine WBC (Auto) 30 Influenza A (Rapid) Negative Influenza B (Rapid) Negative ASSESSMENT AND PLAN: Pt. is an 87yo Female with PMHx if NIDDM, HTN, DVTs, PE(last 2015), GERD, Diverticulosis, Hx. of colon polyps( last colonoscopy 2012-benign) presenting with abdominal pain for 1 day. # Ileus on CT abdomen: dilated Small bowel loops consistent with enteritis # Acute Enteritis #Abdominal pain # Diverticulosis with no hx of diverticulitis #Positive for mesenteric lymph nodes # UTI positive leuk esterase #T2DM with HgA1c 7.5 #HTN #HLD #Constipation -IV ceftriaxone and flagyl on board - Gi consult -BGMs with coverage -continue home meds: lopressor 50 BID, Hydralazine 10mg, Norvasc 5mg -continue lipitor 10 -stool softener IVF NS@ 75ml/hr NPO except for meds- for bowel rest DVT Px; Eliquis
[2018-05-10] MEDS ORDERED: PATIENT'S OWN MEDICATION (NON-FORMULARY) (Omeprazole 40 MG) PO SCH (22:00)
[2018-05-10] MEDS: ATORVASTATIN CA 10 MG TABLET (FP) PO SCH (22:04)
[2018-05-11] MEDS: SODIUM CHLORIDE 1,000 ML IV SCH (01:57)
[2018-05-11] MEDS: INSULIN SLIDING SCALE (NOVOLOG) 1 VIAL SQ SCH ×3 (06:08→18:43)
[2018-05-11 07:15] LABS: HEMATOCRIT 31.9 % (32.4-45.2); HEMOGLOBIN 10.6 GM/dL (10.7-15.3); MCH 28.5 pg (25.7-33.7); MCHC 33.3 g/dl (32.0-36.0); MEAN CELL VOLUME 85.6 fl (80-96); MEAN PLT VOLUME 8.3 fl (7.5-11.1); PLATELET COUNT 131 K/MM3 (134-434); RBC 3.72 M/mm3 (3.60-5.2); WHITE BLOOD COUNT 4.5 K/mm3 (4.0-10.0)
--- NOTE | 2018-05-11 08:25 | PN ---
Physical Exam: SUBJECTIVE: Patient seen and examined at bedside no acute events overnight; states her pain is better no longer having any nausea/vomiting or diarrhea OBJECTIVE: Vital Signs Period Temp Pulse Resp BP Sys/Dobbins Pulse Ox Last 24 Hr 98.6 F-99.4 F 80-97 18-20 101-127/53-69 93 GENERAL: The patient is awake, alert, and fully oriented, in no acute distress.. EYES: PEERLA: EOMI no scleral icterus NECK: no JVD: no lymphadenopathy. LUNGS: CTA B/L; no rales rhonchi or wheezinh. HEART: Regular rate and rhythm, S1, S2 without murmur, rub or gallop. ABDOMEN: soft; nt/nd +BS slight epigastric tenderness EXTREMITIES: 2+ pulses, warm, well-perfused, no edema. PSYCH: Normal mood, normal affect. SKIN: Warm, dry, normal turgor, no rashes or lesions noted Laboratory Results - last 24 hr 05/10/18 05/10/18 05/10/18 10:00 10:00 10:00 WBC 5.0 RBC 3.99 Hgb 11.1 Hct 34.5 MCV 86.5 MCH 27.9 MCHC 32.3 RDW 14.1 Plt Count 131 L D MPV 8.4 Sodium 138 Potassium 3.8 Chloride 104 Carbon Dioxide 28 Anion Gap 5 L BUN 9 Creatinine 0.7 Creat Clearance w eGFR 78.79 POC Glucometer Random Glucose 137 H Hemoglobin A1c % 7.5 H Calcium 7.5 L Phosphorus 2.3 L Magnesium 2.0 05/10/18 05/10/18 05/11/18 11:23 17:19 05:44 WBC RBC Hgb Hct MCV MCH MCHC RDW Plt Count MPV Sodium Potassium Chloride Carbon Dioxide Anion Gap BUN Creatinine Creat Clearance w eGFR POC Glucometer 127 102 104 Random Glucose Hemoglobin A1c % Calcium Phosphorus Magnesium 05/11/18 06:45 WBC 4.5 RBC 3.72 Hgb 10.6 L Hct 31.9 L MCV 85.6 MCH 28.5 MCHC 33.3 RDW 14.0 Plt Count 131 L MPV 8.3 Sodium Potassium Chloride Carbon Dioxide Anion Gap BUN Creatinine Creat Clearance w eGFR POC Glucometer Random Glucose Hemoglobin A1c % Calcium Phosphorus Magnesium Active Medications Generic Name Dose Route Start Last Admin Trade Name Freq PRN Reason Stop Dose Admin Amlodipine Besylate 5 mg 05/10/18 10:00 05/10/18 10:13 Norvasc - PO 5 mg DAILY MICHAEL Administration Apixaban 2.5 mg 05/10/18 10:00 05/10/18 22:04 Eliquis - PO 2.5 mg BID MICHAEL Administration Atorvastatin Calcium 10 mg 05/10/18 22:00 05/10/18 22:04 Lipitor - PO 10 mg HS MICHAEL Administration Docusate Sodium 100 mg 05/10/18 10:00 05/10/18 22:04 Colace - PO 100 mg BID MICHAEL Administration Hydralazine HCl 10 mg 05/10/18 10:00 05/10/18 10:13 Apresoline - PO 10 mg DAILY MICHAEL Administration Sodium Chloride 1,000 mls @ 75 mls/hr 05/10/18 00:45 05/11/18 01:57 Normal Saline - IV Not Given ASDIR MICHAEL Ceftriaxone Sodium 1 gm/ 50 mls @ 100 mls/hr 05/10/18 10:00 05/10/18 10:13 Dextrose IVPB 100 mls/hr DAILY MICHAEL Administration Metronidazole 500 mg in 100 mls @ 100 mls/hr 05/10/18 11:00 05/11/18 01:58 Flagyl 500mg Premixed Ivpb - IVPB 100 mls/hr Q8H-IV MICHAEL Administration Insulin Aspart 1 vial 05/10/18 07:00 05/11/18 06:08 Novolog Vial Sliding Scale - SQ Not Given TIDAC [facility] Protocol Metoprolol Tartrate 50 mg 05/10/18 10:00 05/10/18 22:04 Lopressor - PO 50 mg BID MICHAEL Administration Pantoprazole Sodium 40 mg 05/10/18 10:00 05/10/18 10:12 Protonix Iv IVPUSH 40 mg DAILY MICHAEL Administration ASSESSMENT/PLAN: Pt. is a an 87 y.o F w/ NIDDM, HTN, DVTs, PE(last 2015), GERD, Diverticulosis, Hx. of colon polyps( last colonoscopy 2012-benign) presenting with abdominal pain for 1 day. #Abdominal pain Protonix Iv [address]-A/P showed mild intra hepatic duct dilation, absent gallbladder, several segments of small bowel appear mildly thickened and distended, some nodules in the central mesenteric fat suggesting lymph nodes(largest 8 x 5 mm), haziness in mid epigastric mesenteric fat, GI consult IV ceftriaxone and flagyl on board (day 2) -f/u repeat xray #Positive UA 2+ LE, 30 WBCs ceftriaxone 1 gram daily Cx came back negative #NIDDM Hba1c came back at 7.3 ISS BGMS ACHS #HTN c/w home meds lopressor 50 BID Hydralazine 10mg Norvasc 5mg #HLD c/w lipitor 10 #FEN NS @ 75ml/hr monitor electrolytes and replete as needed Problem List - Problems (1) Abdominal pain Code(s): R10.9 - UNSPECIFIED ABDOMINAL PAIN Qualifiers: Abdominal location: epigastric Qualified Code(s): R10.13 - Epigastric pain (2) Ileus, unspecified Code(s): K56.7 - ILEUS, UNSPECIFIED (3) Urinary tract infection Code(s): N39.0 - URINARY TRACT INFECTION, SITE NOT SPECIFIED (4) Diabetes Code(s): E11.9 - TYPE 2 DIABETES MELLITUS WITHOUT COMPLICATIONS Qualifiers: Diabetes mellitus type: type 2 Diabetes mellitus complication status: without complication Visit type - Emergency Visit Emergency Visit: Yes ED Registration Date: 05/10/18 Care time: The patient presented to the Emergency Department on the above date and was hospitalized for further evaluation of their emergent condition. - New Patient This patient is new to me today: No - Critical Care Critical Care patient: No
[2018-05-11] MEDS ORDERED: cefTRIAXone SODIUM 1 GM VIAL ONE (08:34)
[2018-05-11] MEDS ORDERED: DEXTROSE 5%-WATER - 50 ML IVPB ONE (08:35)
[2018-05-11 09:07] LABS: BLOOD UREA NITROGEN 10 mg/dL (7-18); CREATININE 0.8 mg/dL (0.55-1.3); GLUCOSE,RANDOM 113 mg/dL (74-106); POTASSIUM 3.4 mmol/L (3.5-5.1); SODIUM 140 mmol/L (136-145)
[2018-05-11 09:08] LABS: ANION GAP 9 MMOL/L (8-16); CALCIUM 7.3 mg/dL (8.5-10.1); CHLORIDE 106 mmol/L (98-107); CO2 25 mmol/L (21-32); MAGNESIUM 1.5 mg/dL (1.8-2.4); PHOSPHOROUS 2.3 mg/dL (2.5-4.9)
[2018-05-11] MEDS ORDERED: NAPH,MB-DB/K PH,MBDB POWDER PACKET PO ONE (09:10)
[2018-05-11] MEDS ORDERED: MAGNESIUM OXIDE 400 MG TABLET (FP) PO ONE (09:11)
--- NOTE | 2018-05-11 09:22 | CON.GI ---
Consult Consult Specialty:: GI Referred by:: Hospitalist Service Reason for Consultation:: Abdominal pain - History of Present Illness Chief Complaint: [employer] [id number] utilized: Abdominal pain x 3 days History of Present Illness: 87F admitted through [facility] for evaluation of abdominal pain. The patient states that she was having intermittent abdomina pain/cramping for theee days prior to her admission. The chart also describes her daughter reporting Ms. Valdes to have associated headache and body aches. She denies diarrhea or vomiting. She denied rectal bleeding. She denied associated fevers but said she felt warm. She denied any recent sick contacts with similar complaints and there has been no recent travel. She denies similar episodes in the past. Work-up included a CT scan of A/P without contrast that revealed mildly dilated intrahepatic bile ducts, a few scattered mesenteric lymph nodes, mildly dilated proximal small bowel loops "cannot exclude enteritis, ileus or early SBO". She was given clear liquids and tolerated this. She has been followed at the [facility] by Dr. Florentin New. He performed colonoscopy on Ms. Valdes that revealed scattered diverticulosis and was otherwise normal. Stool specimen sent for occult blood during this admission was negative. There is no family history of colorectal cancer or other GI malignancy. She is maintained on eliquis given history of PE/DVT (recurrent). The H&P describes a h/o A. Fib , however, I cannot find this history in any of her other medical records. CT scan was reviewed with Dr. Schafer: SMA,Celiac trunk and ELIZABETH normal in appearance. SMV appeared normal as well. - History Source History Provided By: Patient, Medical Record - Past Medical History Cardio/Vascular: Yes: AFIB (rate controlled), Deep Vein Thrombosis, HTN Pulmonary: Yes: Pulmonary Embolus (recurrent) Gastrointestinal: Yes: Diverticulosis ...: No Musculoskeletal: Yes: Osteoarthritis Endocrine: Yes: Diabetes Mellitus - Past Surgical History Past Surgical History: Yes: Cholecystectomy (Open) Additional Surgical History: Describes a surgery secondary to pericardial effusion? ? pericardial window - Alcohol/Substance Use Hx Alcohol Use: No History of Substance Use: reports: None - Smoking History Smoking history: Never smoked Have you smoked in the past 12 months: No - Social History Usual Living Arrangement: With Spouse ADL: Independent Place of : Other ([place]) History of Recent Travel: No Home Medications - Allergies Allergies/Adverse Reactions: Allergies Allergy/AdvReac Type Severity Reaction Status Date / Time fish derived Allergy Verified 05/09/18 16:43 shellfish derived Allergy Verified 05/09/18 16:43 aspirin AdvReac Intermediate Verified 05/09/18 16:43 - Home Medications Home Medications: Ambulatory Orders Glipizide 10 mg PO DAILY 12/26/13 Amlodipine Besylate 5 mg PO DAILY 10/02/14 Acetaminophen [Tylenol -] 1,000 mg PO Q6H #100 tablet 02/03/16 Mag Hydrox/Al Hydrox/Simeth [Mylanta Oral Suspension -] 30 ml PO Q6H PRN #1 bot 02/03/16 Apixaban [Eliquis -] 2.5 mg PO BID 01/22/18 Calcium 600-Vit D3 200 Tablet 1 tab PO DAILY 01/22/18 Colace 100 mg PO BID 01/22/18 Januvia 100 mg PO DAILY 01/22/18 Metoprolol Tartrate 50 mg PO BID 01/22/18 Omeprazole 40 mg PO HS 01/22/18 Zocor 20 mg PO HS 01/22/18 hydrALAZINE HCL 10 mg PO DAILY 01/22/18 Family Disease History - Family Disease History Family Disease History: Other: Father (: Prostate Ca), Mother (: Skin cancer), Brother (2, healthy), Son (5, healthy), Daughter (5, healthy, 1 in infancy) Other Family History: No family history of colorectal cancer or other GI malignancy Review of Systems - Review of Systems Constitutional: denies: Chills, Weakness Cardiovascular: denies: Chest Pain Gastrointestinal: reports: Abdominal Pain. denies: Bloating, Constipation, Diarrhea, Melena, Rectal Bleeding Physical Exam-GI Vital Signs: Vital Signs Temperature 98.7 F 05/11/18 05:40 Pulse Rate 81 05/11/18 05:40 Respiratory Rate 20 05/11/18 05:40 Blood Pressure 112/55 L 05/11/18 05:40 O2 Sat by Pulse Oximetry (%) 93 L 05/10/18 21:00 Constitutional: Yes: Calm Eyes: No: Sclera Icterus Cardiovascular: Yes: Regular Rate and Rhythm. No: Murmur Respiratory: Yes: CTA Bilaterally Gastrointestinal Inspection: Yes: Scars (RUQ scar, small vertical upper epigastric scar). No: Distention ...Auscultate: Yes: Normoactive Bowel Sounds ...Palpate: No: Hepatomegaly, Splenomegaly, Tenderness ...Percussion: No: Tympanitic Edema: No (No LE edema) Neurological: Yes: Alert Labs: CBC, BMP 05/11/18 06:45 05/11/18 06:45 Imaging - Results Cat Scan: Report Reviewed, Image Reviewed Problem List - Problems (1) Ileus, unspecified Assessment/Plan: ? Enteritis secondary to AGE. clinically improved without interventions and tolerating Clears Advise: - FUA for follow-up of ileus - Advance to full liquids for now then as tolerated - IV Abx - If worsening pain, vomiting, NPO, NGT surgical evaluation as developing SBO wouldneed to stay in differential, particularly given prior abdominal surgical history - Evaluation of thrombocytopenia / anemia per primary team - Clarification regarding A. Fib history noted on current H&P Code(s): K56.7 - ILEUS, UNSPECIFIED
[2018-05-11] MEDS: CEFTRIAXONE 1 GM in DEXTROSE 5%-WATER - 50 ML IVPB SCH (09:53)
[2018-05-11] MEDS: PANTOPRAZOLE SODIUM 40 MG VIAL IVPUSH SCH (09:54)
[2018-05-11] MEDS: APIXABAN 2.5 MG TABLET PO SCH ×2 (09:56→21:24)
[2018-05-11] MEDS: DOCUSATE SODIUM 100 MG CAPSULE (FP) PO SCH ×2 (09:56→21:24)
[2018-05-11] MEDS: amLODIPine BESYLATE 5 MG TABLET (FP) PO SCH (13:58)
[2018-05-11] MEDS: hydrALAZINE HCL 10 MG TABLET PO SCH (13:58)
[2018-05-11] MEDS: METOPROLOL TARTRATE 50 MG TABLET (FP) PO SCH ×2 (13:58→21:24)
--- NOTE | 2018-05-11 18:48 | PN ---
Teaching Attending Note Name of Resident: Madeline Mo ATTENDING PHYSICIAN STATEMENT I saw and evaluated the patient. I reviewed the resident's note and discussed the case with the resident. I agree with the resident's findings and plan as documented. SUBJECTIVE: Patient is feeling better with no acute distress. OBJECTIVE: Vital Signs Temperature 98.1 F 05/11/18 13:40 Pulse Rate 96 H 05/11/18 13:40 Respiratory Rate 20 05/11/18 13:40 Blood Pressure 132/74 05/11/18 13:40 O2 Sat by Pulse Oximetry (%) 93 L 05/11/18 09:00 GENERAL: The patient is awake, alert, and fully oriented, in no acute distress. EYES: PEERLA: EOMI; no scleral icterus NECK: no JVD; no lymphadenopathy LUNGS:CTA B/L; no rales, rhonchi or wheezing HEART: Regular rate and rhythm, S1, S2 without murmur, rub or gallop. ABDOMEN: Soft, slight midline and epigastric tenderness upon palpation; positive for BS EXTREMITIES: 2+ pulses, warm, well-perfused, no edema. . PSYCH: Normal mood, normal affect. SKIN: Warm, dry, normal turgor, no rashes or lesions noted CBCD WBC 4.5 K/mm3 (4.0-10.0) 05/11/18 06:45 RBC 3.72 M/mm3 (3.60-5.2) 05/11/18 06:45 Hgb 10.6 GM/dL (10.7-15.3) L 05/11/18 06:45 Hct 31.9 % (32.4-45.2) L 05/11/18 06:45 MCV 85.6 fl (80-96) 05/11/18 06:45 MCHC 33.3 g/dl (32.0-36.0) 05/11/18 06:45 RDW 14.0 % (11.6-15.6) 05/11/18 06:45 Plt Count 131 K/MM3 (134-434) L 05/11/18 06:45 MPV 8.3 fl (7.5-11.1) 05/11/18 06:45 CMP Sodium 140 mmol/L (136-145) 05/11/18 06:45 Potassium 3.4 mmol/L (3.5-5.1) L 05/11/18 06:45 Chloride 106 mmol/L (98-107) 05/11/18 06:45 Carbon Dioxide 25 mmol/L (21-32) 05/11/18 06:45 Anion Gap 9 MMOL/L (8-16) 05/11/18 06:45 BUN 10 mg/dL (7-18) 05/11/18 06:45 Creatinine 0.8 mg/dL (0.55-1.3) 05/11/18 06:45 Creat Clearance w eGFR 67.54 (>60) 05/11/18 06:45 Random Glucose 113 mg/dL (74-106) H 05/11/18 06:45 Calcium 7.3 mg/dL (8.5-10.1) L 05/11/18 06:45 Total Bilirubin 1.0 mg/dL (0.2-1) 05/09/18 16:51 AST 31 U/L (15-37) 05/09/18 16:51 ALT 32 U/L (13-61) 05/09/18 16:51 Alkaline Phosphatase 104 U/L (45-117) 05/09/18 16:51 Total Protein 7.3 g/dl (6.4-8.2) 05/09/18 16:51 Albumin 3.7 g/dl (3.4-5.0) 05/09/18 16:51 CARDIAC ENZYMES Troponin I < 0.02 ng/ml (0.00-0.05) 05/09/18 16:51 Current Medications Generic Name Dose Route Start Last Admin Trade Name Freq PRN Reason Stop Dose Admin Amlodipine Besylate 5 mg 05/10/18 10:00 05/11/18 13:58 Norvasc - PO Not Given DAILY MICHAEL Apixaban 2.5 mg 05/10/18 10:00 05/11/18 09:56 Eliquis - PO 2.5 mg BID MICHAEL Administration Atorvastatin Calcium 10 mg 05/10/18 22:00 05/10/18 22:04 Lipitor - PO 10 mg HS MICHAEL Administration Docusate Sodium 100 mg 05/10/18 10:00 05/11/18 09:56 Colace - PO 100 mg BID MICHAEL Administration Hydralazine HCl 10 mg 05/10/18 10:00 05/11/18 13:58 Apresoline - PO Not Given DAILY MICHAEL Sodium Chloride 1,000 mls @ 75 mls/hr 05/10/18 00:45 05/11/18 01:57 Normal Saline - IV Not Given ASDIR MICHAEL Ceftriaxone Sodium 1 gm/ 50 mls @ 100 mls/hr 05/10/18 10:00 05/11/18 09:53 Dextrose IVPB 100 mls/hr DAILY MICHAEL Administration Metronidazole 500 mg in 100 mls @ 100 mls/hr 05/10/18 11:00 05/11/18 18:44 Flagyl 500mg Premixed Ivpb - IVPB 100 mls/hr Q8H-IV MICHAEL Administration Insulin Aspart 1 vial 05/10/18 07:00 05/11/18 18:43 Novolog Vial Sliding Scale - SQ Not Given TIDAC [facility] Protocol Metoprolol Tartrate 50 mg 05/10/18 10:00 05/11/18 13:58 Lopressor - PO Not Given BID MICHAEL Pantoprazole Sodium 40 mg 05/10/18 10:00 05/11/18 09:54 Protonix Iv IVPUSH 40 mg DAILY MICHAEL Administration Home Medications Medication Instructions Recorded Glipizide 10 mg PO DAILY 12/26/13 Amlodipine Besylate 5 mg PO DAILY 10/02/14 Acetaminophen [Tylenol -] 1,000 mg PO Q6H #100 tablet 02/03/16 Mag Hydrox/Al Hydrox/Simeth 30 ml PO Q6H PRN #1 bot 02/03/16 [Mylanta Oral Suspension -] Apixaban [Eliquis -] 2.5 mg PO BID 01/22/18 Calcium 600-Vit D3 200 Tablet 1 tab PO DAILY 01/22/18 Colace 100 mg PO BID 01/22/18 Januvia 100 mg PO DAILY 01/22/18 Metoprolol Tartrate 50 mg PO BID 01/22/18 Omeprazole 40 mg PO HS 01/22/18 Zocor 20 mg PO HS 01/22/18 hydrALAZINE HCL 10 mg PO DAILY 01/22/18 Laboratory Tests 05/09/18 05/09/18 05/10/18 16:57 20:59 10:00 Potassium Random Glucose Hemoglobin A1c % 7.5 H Phosphorus Magnesium Ur Leukocyte Esterase 2+ H Urine WBC (Auto) 30 Influenza A (Rapid) Negative Influenza B (Rapid) Negative 03/29/19 06:45 Potassium 3.4 L Random Glucose 113 H Hemoglobin A1c % Phosphorus 2.3 L Magnesium 1.5 L Ur Leukocyte Esterase Urine WBC (Auto) Influenza A (Rapid) Influenza B (Rapid) ASSESSMENT AND PLAN: Pt. is an 87yo Female with PMHx if NIDDM, HTN, DVTs, PE(last 2015), GERD, Diverticulosis, Hx. of colon polyps( last colonoscopy 2012-benign) presenting with abdominal pain for 1 day. # Ileus on CT abdomen: dilated Small bowel loops consistent with enteritis, improving , will advance the diet. # Acute Enteritis #Abdominal pain # Diverticulosis with no hx of diverticulitis #Positive for mesenteric lymph nodes # UTI positive leuk esterase #T2DM with HgA1c 7.5 #HTN #HLD #Constipation # Hypimagnesemia #Hypophosphtemia hypokalemia will order IV replacement. -IV ceftriaxone and flagyl on board - Gi consult -BGMs with coverage -continue home meds: lopressor 50 BID, Hydralazine 10mg, Norvasc 5mg -continue lipitor 10 -stool softener IVF NS@ 75ml/hr DVT Px; Eliquis
[2018-05-11] MEDS ORDERED: POTASSIUM PHOSPHATE 15 MM in SODIUM CHLORIDE 250 ML IVPB ONE (19:15)
[2018-05-11] MEDS ORDERED: MAGNESIUM SULF 50% (8.12 MEQ/2 ML-1 GM VIAL) IVPB ONE (19:15)
--- NOTE | 2018-05-11 19:49 | PN ---
Progress Note (short form) - Note Progress Note: AXR: repeat AXR questions developing or early SBO. Tolerating full liquids, placed surgical consult to eval further. Problem List - Problems (1) Ileus, unspecified Code(s): K56.7 - ILEUS, UNSPECIFIED
[2018-05-11] MEDS: ATORVASTATIN CA 10 MG TABLET (FP) PO SCH (21:24)
[2018-05-11] MEDS: ACETAMINOPHEN 325 MG TABLET (FP) PO PRN (21:26)
[2018-05-12] MEDS: INSULIN SLIDING SCALE (NOVOLOG) 1 VIAL SQ SCH ×3 (06:31→16:53)
[2018-05-12 07:08] LABS: HEMATOCRIT 37.1 % (32.4-45.2); HEMOGLOBIN 12.2 GM/dL (10.7-15.3); MCH 28.2 pg (25.7-33.7); MCHC 32.9 g/dl (32.0-36.0); MEAN CELL VOLUME 85.6 fl (80-96); MEAN PLT VOLUME 8.7 fl (7.5-11.1); PLATELET COUNT 147 K/MM3 (134-434); RBC 4.34 M/mm3 (3.60-5.2); RDW 13.7 % (11.6-15.6); WHITE BLOOD COUNT 4.7 K/mm3 (4.0-10.0)
[2018-05-12 07:26] LABS: ANION GAP 7 MMOL/L (8-16); BLOOD UREA NITROGEN 8 mg/dL (7-18); CALCIUM 7.9 mg/dL (8.5-10.1); CHLORIDE 104 mmol/L (98-107); CO2 28 mmol/L (21-32); CREATININE 0.7 mg/dL (0.55-1.3); GLUCOSE,RANDOM 157 mg/dL (74-106); MAGNESIUM 2.1 mg/dL (1.8-2.4); PHOSPHOROUS 3.1 mg/dL (2.5-4.9); POTASSIUM 3.6 mmol/L (3.5-5.1); SODIUM 139 mmol/L (136-145)
[2018-05-12] MEDS ORDERED: cefTRIAXone SODIUM 1 GM VIAL ONE (08:41)
[2018-05-12] MEDS ORDERED: DEXTROSE 5%-WATER - 50 ML IVPB ONE (08:41)
[2018-05-12] MEDS: DOCUSATE SODIUM 100 MG CAPSULE (FP) PO SCH (09:41)
[2018-05-12] MEDS: METOPROLOL TARTRATE 50 MG TABLET (FP) PO SCH ×2 (09:41→22:37)
[2018-05-12] MEDS: amLODIPine BESYLATE 5 MG TABLET (FP) PO SCH (09:41)
[2018-05-12] MEDS: APIXABAN 2.5 MG TABLET PO SCH (09:41)
[2018-05-12] MEDS: hydrALAZINE HCL 10 MG TABLET PO SCH (09:41)
[2018-05-12] MEDS: PANTOPRAZOLE SODIUM 40 MG VIAL IVPUSH SCH (09:42)
[2018-05-12] MEDS: CEFTRIAXONE 1 GM in DEXTROSE 5%-WATER - 50 ML IVPB SCH (10:57)
--- NOTE | 2018-05-12 12:33 | CONSULT ---
Consult Consult Specialty:: General Surgery Reason for Consultation:: SBO on CT scan - History of Present Illness Chief Complaint: nausea and diarrhea History of Present Illness: 87yo female MMP with abdominal pain for 1 day. Pt. states that it has been intermittent lasting ~30min but progressively worsening over the last day. Pt. states that she was nauseous on ED arrival but nausea has decreased since receiving Zofran. Pt. endorses headache(band distribution), generalized muscle and joint pains, decreased PO intake (finishes less than half the plate for "awhile now)," small loose bowel movement yesterday and subjective fever. Pt. denies chills, vomiting ,blood in the stool or urine, dizziness, lightheadedness , numbness/tingling, palpitations, changes in vision, chest pain or shortness of breath. Pt. states that she lives alone with a ADDICTION SPECIALIST that visits for a few hours each day. She states she takes her medications everyday as prescribed. We were aslked to assess. - History Source History Provided By: Patient, Medical Record Limitations to Obtaining History: No Limitations - Past Medical History Cardio/Vascular: Yes: AFIB (rate controlled), Deep Vein Thrombosis, HTN Pulmonary: Yes: Pulmonary Embolus (recurrent) Gastrointestinal: Yes: Diverticulosis ...: No Musculoskeletal: Yes: Osteoarthritis Endocrine: Yes: Diabetes Mellitus - Past Surgical History Past Surgical History: Yes: Cholecystectomy (Open) Additional Surgical History: Describes a surgery secondary to pericardial effusion? ? pericardial window - Alcohol/Substance Use Hx Alcohol Use: No History of Substance Use: reports: None - Smoking History Smoking history: Never smoked Have you smoked in the past 12 months: No - Social History Usual Living Arrangement: With Spouse ADL: Independent History of Recent Travel: No Home Medications - Allergies Allergies/Adverse Reactions: Allergies Allergy/AdvReac Type Severity Reaction Status Date / Time fish derived Allergy Verified 05/09/18 16:43 shellfish derived Allergy Verified 05/09/18 16:43 aspirin AdvReac Intermediate Verified 05/09/18 16:43 - Home Medications Home Medications: Ambulatory Orders Glipizide 10 mg PO DAILY 12/26/13 Amlodipine Besylate 5 mg PO DAILY 10/02/14 Acetaminophen [Tylenol -] 1,000 mg PO Q6H #100 tablet 02/03/16 Mag Hydrox/Al Hydrox/Simeth [Mylanta Oral Suspension -] 30 ml PO Q6H PRN #1 bot 02/03/16 Apixaban [Eliquis -] 2.5 mg PO BID 01/22/18 Calcium 600-Vit D3 200 Tablet 1 tab PO DAILY 01/22/18 Colace 100 mg PO BID 01/22/18 Januvia 100 mg PO DAILY 01/22/18 Metoprolol Tartrate 50 mg PO BID 01/22/18 Omeprazole 40 mg PO HS 01/22/18 Zocor 20 mg PO HS 01/22/18 hydrALAZINE HCL 10 mg PO DAILY 01/22/18 Family Disease History - Family Disease History Family Disease History: Other: Father (: Prostate Ca), Mother (: Skin cancer), Brother (2, healthy), Son (5, healthy), Daughter (5, healthy, 1 in infancy) Other Family History: No family history of colorectal cancer or other GI malignancy Physical Exam Vital Signs: Vital Signs Temperature 97.7 F 05/12/18 09:47 Pulse Rate 71 05/12/18 09:47 Respiratory Rate 18 05/12/18 09:47 Blood Pressure 151/79 05/12/18 09:47 O2 Sat by Pulse Oximetry (%) 99 05/12/18 09:00 Constitutional: Yes: Well Nourished, No Distress, Calm Eyes: Yes: Conjunctiva Clear, EOM Intact HENT: Yes: Atraumatic, Normocephalic Neck: Yes: Supple, Trachea Midline Cardiovascular: Yes: Regular Rate and Rhythm, S1, S2 Respiratory: Yes: Regular, CTA Bilaterally Gastrointestinal: Yes: Normal Bowel Sounds, Soft. No: Distention, Tenderness, Tenderness, Epigastrium, Tenderness, Rebound Renal/: No: CVA Tenderness - Left, CVA Tenderness - Right Breast(s): No: Nipple Inversion, Skin Changes Musculoskeletal: No: Muscle Pain, Muscle Weakness Extremities: No: Cool, Cyanosis Edema: No Peripheral Pulses WNL: Yes Integumentary: No: Incision, Jaundice, Onychomycosis Neurological: Yes: Alert, Oriented Psychiatric: Yes: Alert, Oriented Labs: CBC, BMP 05/12/18 05:30 05/12/18 05:30 Imaging - Results Cat Scan: Report Reviewed, Image Reviewed (distended loops of small bowel upper abdomen) Problem List - Problems (1) Abdominal pain Assessment/Plan: 87yo femlaqe PMH nausea vomiting and diarrhea, probably gastroenteritis. I would favor non-operative management. She does not require emergency surgery intervention at this time. Hold eloquis Consider holding stool softners NPO and IVF hydration NGT to LIWS supportive medical care trend labs and replete electrolytes consider r/o Cdiff repeat xray will follow Thank you for the opportunity to participate in the care of this patient. Code(s): R10.9 - UNSPECIFIED ABDOMINAL PAIN Qualifiers: Abdominal location: epigastric Qualified Code(s): R10.13 - Epigastric pain (2) Chest pain Code(s): R07.9 - CHEST PAIN, UNSPECIFIED Qualifiers: Chest pain type: unspecified Qualified Code(s): R07.9 - Chest pain, unspecified (3) DVT prophylaxis Code(s): [id number] - (4) Diabetes Code(s): E11.9 - TYPE 2 DIABETES MELLITUS WITHOUT COMPLICATIONS Qualifiers: Diabetes mellitus type: type 2 Diabetes mellitus complication status: without complication (5) Hypertension Code(s): I10 - ESSENTIAL (PRIMARY) HYPERTENSION (6) Pulmonary embolism Code(s): I26.99 - OTHER PULMONARY EMBOLISM WITHOUT ACUTE COR PULMONALE Qualifiers: Pulmonary embolism type: other Chronicity: acute Acute cor pulmonale presence: without acute cor pulmonale Qualified Code(s): I26.99 - Other pulmonary embolism without acute cor pulmonale
--- NOTE | 2018-05-12 12:48 | PN ---
Progress Note (short form) - Note Progress Note: Patient is feeling better with no acute distress, no further diarrhea. Vital Signs Temperature 97.7 F 05/12/18 09:47 Pulse Rate 71 05/12/18 09:47 Respiratory Rate 18 05/12/18 09:47 Blood Pressure 151/79 05/12/18 09:47 O2 Sat by Pulse Oximetry (%) 99 05/12/18 09:00 GENERAL: The patient is awake, alert, and fully oriented, in no acute distress. EYES: PEERLA: EOMI; no scleral icterus NECK: no JVD; no lymphadenopathy LUNGS:CTA B/L; no rales, rhonchi or wheezing HEART: Regular rate and rhythm, S1, S2 without murmur, rub or gallop. ABDOMEN: Soft, mild pigastric tenderness , positive for BS EXTREMITIES: 2+ pulses, warm, well-perfused, no edema. . PSYCH: Normal mood, normal affect. SKIN: Warm, dry, normal turgor, no rashes or lesions noted CBCD WBC 4.7 K/mm3 (4.0-10.0) 05/12/18 05:30 RBC 4.34 M/mm3 (3.60-5.2) 05/12/18 05:30 Hgb 12.2 GM/dL (10.7-15.3) 05/12/18 05:30 Hct 37.1 % (32.4-45.2) D 05/12/18 05:30 MCV 85.6 fl (80-96) 05/12/18 05:30 MCHC 32.9 g/dl (32.0-36.0) 05/12/18 05:30 RDW 13.7 % (11.6-15.6) 05/12/18 05:30 Plt Count 147 K/MM3 (134-434) 05/12/18 05:30 MPV 8.7 fl (7.5-11.1) 05/12/18 05:30 CMP Sodium 139 mmol/L (136-145) 05/12/18 05:30 Potassium 3.6 mmol/L (3.5-5.1) 05/12/18 05:30 Chloride 104 mmol/L (98-107) 05/12/18 05:30 Carbon Dioxide 28 mmol/L (21-32) 05/12/18 05:30 Anion Gap 7 MMOL/L (8-16) L 05/12/18 05:30 BUN 8 mg/dL (7-18) 05/12/18 05:30 Creatinine 0.7 mg/dL (0.55-1.3) 05/12/18 05:30 Creat Clearance w eGFR 78.79 (>60) 05/12/18 05:30 Random Glucose 157 mg/dL (74-106) H 05/12/18 05:30 Calcium 7.9 mg/dL (8.5-10.1) L 05/12/18 05:30 Total Bilirubin 1.0 mg/dL (0.2-1) 05/09/18 16:51 AST 31 U/L (15-37) 05/09/18 16:51 ALT 32 U/L (13-61) 05/09/18 16:51 Alkaline Phosphatase 104 U/L (45-117) 05/09/18 16:51 Total Protein 7.3 g/dl (6.4-8.2) 05/09/18 16:51 Albumin 3.7 g/dl (3.4-5.0) 05/09/18 16:51 CARDIAC ENZYMES Troponin I < 0.02 ng/ml (0.00-0.05) 05/09/18 16:51 Current Medications Generic Name Dose Route Start Last Admin Trade Name Freq PRN Reason Stop Dose Admin Acetaminophen 650 mg 05/11/18 21:14 05/11/18 21:26 Tylenol - PO 650 mg Q6H PRN Administration Fever Or Pain Amlodipine Besylate 5 mg 05/10/18 10:00 05/12/18 09:41 Norvasc - PO 5 mg DAILY MICHAEL Administration Apixaban 2.5 mg 05/10/18 10:00 05/12/18 09:41 Eliquis - PO 2.5 mg BID MICHAEL Administration Atorvastatin Calcium 10 mg 05/10/18 22:00 05/11/18 21:24 Lipitor - PO 10 mg HS MICHAEL Administration Docusate Sodium 100 mg 05/10/18 10:00 05/12/18 09:41 Colace - PO 100 mg BID MICHAEL Administration Hydralazine HCl 10 mg 05/10/18 10:00 05/12/18 09:41 Apresoline - PO 10 mg DAILY MICHAEL Administration Sodium Chloride 1,000 mls @ 75 mls/hr 05/10/18 00:45 05/11/18 01:57 Normal Saline - IV Not Given ASDIR MICHAEL Ceftriaxone Sodium 1 gm/ 50 mls @ 100 mls/hr 05/10/18 10:00 05/12/18 10:57 Dextrose IVPB 100 mls/hr DAILY MICHAEL Administration Metronidazole 500 mg in 100 mls @ 100 mls/hr 05/10/18 11:00 05/12/18 09:42 Flagyl 500mg Premixed Ivpb - IVPB 100 mls/hr Q8H-IV MICHAEL Administration Insulin Aspart 1 vial 05/10/18 07:00 05/12/18 10:57 Novolog Vial Sliding Scale - SQ Not Given TIDAC [facility] Protocol Metoprolol Tartrate 50 mg 05/10/18 10:00 05/12/18 09:41 Lopressor - PO 50 mg BID MICHAEL Administration Pantoprazole Sodium 40 mg 05/10/18 10:00 05/12/18 09:42 Protonix Iv IVPUSH 40 mg DAILY MICHAEL Administration Home Medications Medication Instructions Recorded Glipizide 10 mg PO DAILY 12/26/13 Amlodipine Besylate 5 mg PO DAILY 10/02/14 Acetaminophen [Tylenol -] 1,000 mg PO Q6H #100 tablet 02/03/16 Mag Hydrox/Al Hydrox/Simeth 30 ml PO Q6H PRN #1 bot 02/03/16 [Mylanta Oral Suspension -] Apixaban [Eliquis -] 2.5 mg PO BID 01/22/18 Calcium 600-Vit D3 200 Tablet 1 tab PO DAILY 01/22/18 Colace 100 mg PO BID 01/22/18 Januvia 100 mg PO DAILY 01/22/18 Metoprolol Tartrate 50 mg PO BID 01/22/18 Omeprazole 40 mg PO HS 01/22/18 Zocor 20 mg PO HS 01/22/18 hydrALAZINE HCL 10 mg PO DAILY 01/22/18 XRay of abdomen:reviewed Assessment/plan: Pt. is an 87yo Female with PMHx if NIDDM, HTN, DVTs, PE(last 2015), GERD, Diverticulosis, Hx. of colon polyps( last colonoscopy 2012-benign) presenting with abdominal pain for 1 day. # Ileus on CT abdomen: dilated Small bowel loops consistent with enteritis, improving , will advance the diet. # Acute Enteritis #Abdominal pain improving # Diverticulosis with no hx of diverticulitis #Positive for mesenteric lymph nodes repeat Ct as an outpatient. # UTI positive leuk esterase #T2DM with HgA1c 7.5 #HTN #HLD #Constipation # Hypomagnesemia #Hypophosphtemia #hypokalemia improving will order IV replacement. -IV ceftriaxone and flagyl continue - Gi consult/surgical consult appreciated -BGMs with coverage -continue home meds: lopressor 50 BID, Hydralazine 10mg, Norvasc 5mg -continue lipitor 10 dc stool softener since had x5 diarrhea. IVF NS@ 75ml/hr DVT Px; Eliquis Visit type - Emergency Visit Emergency Visit: Yes ED Registration Date: 05/10/18 Care time: The patient presented to the Emergency Department on the above date and was hospitalized for further evaluation of their emergent condition. - New Patient This patient is new to me today: No - Critical Care Critical Care patient: No - Discharge Referral Referred to [facility] No
--- NOTE | 2018-05-12 13:54 | PN.GI ---
GI Progress Note Subjective: still with abdominal bloating diarrhea after getting colace, no abdominal pain, no nausea and no vomiting, Reviewed FUA-- non-specific gas pattern, no air fluid levels - Objective Vital Signs: Vital Signs Temperature 97.7 F 05/12/18 09:47 Pulse Rate 71 05/12/18 09:47 Respiratory Rate 18 05/12/18 09:47 Blood Pressure 151/79 05/12/18 09:47 O2 Sat by Pulse Oximetry (%) 99 05/12/18 09:00 Constitutional: Well Nourished Eyes: Yes: Conjunctiva Clear HENT: Yes: Atraumatic Neck: Yes: Trachea Midline Cardiovascular: Yes: Regular Rate and Rhythm Respiratory: Yes: CTA Bilaterally Gastrointestinal Inspection: No: Distention ...Auscultate: Yes: Hyperactive Bowel Sounds ...Palpate: Yes: Soft. No: Firm/Rigid, Guarding, Hepatomegaly, Mass, Splenomegaly, Tenderness Labs: CBC, BMP 05/12/18 05:30 05/12/18 05:30 Current Medications Generic Name Dose Route Start Last Admin Trade Name Freq PRN Reason Stop Dose Admin Acetaminophen 650 mg 05/11/18 21:14 05/11/18 21:26 Tylenol - PO 650 mg Q6H PRN Administration Fever Or Pain Amlodipine Besylate 5 mg 05/10/18 10:00 05/12/18 09:41 Norvasc - PO 5 mg DAILY MICHAEL Administration Apixaban 2.5 mg 05/10/18 10:00 05/12/18 09:41 Eliquis - PO 2.5 mg BID MICHAEL Administration Atorvastatin Calcium 10 mg 05/10/18 22:00 05/11/18 21:24 Lipitor - PO 10 mg HS MICHAEL Administration Docusate Sodium 100 mg 05/10/18 10:00 05/12/18 09:41 Colace - PO 100 mg BID MICHAEL Administration Hydralazine HCl 10 mg 05/10/18 10:00 05/12/18 09:41 Apresoline - PO 10 mg DAILY MICHAEL Administration Sodium Chloride 1,000 mls @ 75 mls/hr 05/10/18 00:45 05/11/18 01:57 Normal Saline - IV Not Given ASDIR MICHAEL Ceftriaxone Sodium 1 gm/ 50 mls @ 100 mls/hr 05/10/18 10:00 05/12/18 10:57 Dextrose IVPB 100 mls/hr DAILY MICHAEL Administration Metronidazole 500 mg in 100 mls @ 100 mls/hr 05/10/18 11:00 05/12/18 09:42 Flagyl 500mg Premixed Ivpb - IVPB 100 mls/hr Q8H-IV MICHAEL Administration Insulin Aspart 1 vial 05/10/18 07:00 05/12/18 10:57 Novolog Vial Sliding Scale - SQ Not Given TIDAC [facility] Protocol Metoprolol Tartrate 50 mg 05/10/18 10:00 05/12/18 09:41 Lopressor - PO 50 mg BID MICHAEL Administration Pantoprazole Sodium 40 mg 05/10/18 10:00 05/12/18 09:42 Protonix Iv IVPUSH 40 mg DAILY MICHAEL Administration Problem List - Problems (1) Abdominal pain Assessment/Plan: r/o secondary too ileus, IBS r/o underlyging abcterial overgrowth and gastroparesis R> Regaln 5mg tid advance diet discussed with Dr Urbina Code(s): R10.9 - UNSPECIFIED ABDOMINAL PAIN Qualifiers: Abdominal location: epigastric Qualified Code(s): R10.13 - Epigastric pain
[2018-05-12] MEDS: SODIUM CHLORIDE 1,000 ML IV SCH (16:52)
[2018-05-12] MEDS: METOCLOPRAMIDE HCL 10 MG TABLET (FP) PO SCH (16:53)
[2018-05-12] MEDS: ATORVASTATIN CA 10 MG TABLET (FP) PO SCH (22:36)
[2018-05-12] MEDS: ACETAMINOPHEN 325 MG TABLET (FP) PO PRN (22:37)
[2018-05-13] MEDS: SODIUM CHLORIDE 1,000 ML IV SCH (00:45)
[2018-05-13] MEDS: METOCLOPRAMIDE HCL 10 MG TABLET (FP) PO SCH ×2 (06:12→10:09)
[2018-05-13] MEDS: INSULIN SLIDING SCALE (NOVOLOG) 1 VIAL SQ SCH ×2 (06:13→12:39)
[2018-05-13] MEDS ORDERED: DEXTROSE 5%-WATER - 50 ML IVPB ONE (08:56)
[2018-05-13] MEDS ORDERED: cefTRIAXone SODIUM 1 GM VIAL ONE (08:56)
[2018-05-13] MEDS: PANTOPRAZOLE SODIUM 40 MG VIAL IVPUSH SCH (10:07)
[2018-05-13] MEDS: METOPROLOL TARTRATE 50 MG TABLET (FP) PO SCH (10:08)
[2018-05-13] MEDS: amLODIPine BESYLATE 5 MG TABLET (FP) PO SCH (10:08)
[2018-05-13] MEDS: CEFTRIAXONE 1 GM in DEXTROSE 5%-WATER - 50 ML IVPB SCH (10:08)
[2018-05-13] MEDS: hydrALAZINE HCL 10 MG TABLET PO SCH (10:08)
--- NOTE | 2018-05-13 11:54 | PN ---
Progress Note (short form) - Note Progress Note: Patient is feeling better, no further diarrhea. Vital Signs Temperature 97.7 F 05/13/18 06:00 Pulse Rate 74 05/13/18 06:00 Respiratory Rate 20 05/13/18 06:00 Blood Pressure 129/96 05/13/18 06:00 O2 Sat by Pulse Oximetry (%) 97 05/12/18 22:00 Initial Vital Signs Temp Pulse Resp BP Pulse Ox 98.4 F 98 H 18 148/75 100 05/09/18 16:43 05/09/18 16:43 05/09/18 16:43 05/09/18 16:43 05/09/18 16:43 GENERAL: The patient is awake, alert, and fully oriented, in no acute distress. EYES: PEERLA: EOMI; no scleral icterus NECK: no JVD; no lymphadenopathy LUNGS:CTA B/L; no rales, rhonchi or wheezing HEART: Regular rate and rhythm, S1, S2 without murmur, rub or gallop. ABDOMEN: Soft, mild pigastric tenderness , positive for BS EXTREMITIES: 2+ pulses, warm, well-perfused, no edema. . PSYCH: Normal mood, normal affect. SKIN: Warm, dry, normal turgor, no rashes or lesions noted CBCD WBC 4.7 K/mm3 (4.0-10.0) 05/12/18 05:30 RBC 4.34 M/mm3 (3.60-5.2) 05/12/18 05:30 Hgb 12.2 GM/dL (10.7-15.3) 05/12/18 05:30 Hct 37.1 % (32.4-45.2) D 05/12/18 05:30 MCV 85.6 fl (80-96) 05/12/18 05:30 MCHC 32.9 g/dl (32.0-36.0) 05/12/18 05:30 RDW 13.7 % (11.6-15.6) 05/12/18 05:30 Plt Count 147 K/MM3 (134-434) 05/12/18 05:30 MPV 8.7 fl (7.5-11.1) 05/12/18 05:30 CMP Sodium 139 mmol/L (136-145) 05/12/18 05:30 Potassium 3.6 mmol/L (3.5-5.1) 05/12/18 05:30 Chloride 104 mmol/L (98-107) 05/12/18 05:30 Carbon Dioxide 28 mmol/L (21-32) 05/12/18 05:30 Anion Gap 7 MMOL/L (8-16) L 05/12/18 05:30 BUN 8 mg/dL (7-18) 05/12/18 05:30 Creatinine 0.7 mg/dL (0.55-1.3) 05/12/18 05:30 Creat Clearance w eGFR 78.79 (>60) 05/12/18 05:30 Random Glucose 157 mg/dL (74-106) H 05/12/18 05:30 Calcium 7.9 mg/dL (8.5-10.1) L 05/12/18 05:30 Total Bilirubin 1.0 mg/dL (0.2-1) 05/09/18 16:51 AST 31 U/L (15-37) 05/09/18 16:51 ALT 32 U/L (13-61) 05/09/18 16:51 Alkaline Phosphatase 104 U/L (45-117) 05/09/18 16:51 Total Protein 7.3 g/dl (6.4-8.2) 05/09/18 16:51 Albumin 3.7 g/dl (3.4-5.0) 05/09/18 16:51 CARDIAC ENZYMES Troponin I < 0.02 ng/ml (0.00-0.05) 05/09/18 16:51 Current Medications Generic Name Dose Route Start Last Admin Trade Name Geraldine PRN Reason Stop Dose Admin Acetaminophen 650 mg 05/11/18 21:14 05/12/18 22:37 Tylenol - PO 650 mg Q6H PRN Administration Fever Or Pain Amlodipine Besylate 5 mg 05/10/18 10:00 05/13/18 10:08 Norvasc - PO 5 mg DAILY MICHAEL Administration Apixaban 2.5 mg 05/10/18 10:00 05/12/18 09:41 Eliquis - PO 2.5 mg BID MICHAEL Administration Atorvastatin Calcium 10 mg 05/10/18 22:00 05/12/18 22:36 Lipitor - PO 10 mg HS MICHAEL Administration Hydralazine HCl 10 mg 05/10/18 10:00 05/13/18 10:08 Apresoline - PO 10 mg DAILY MICHAEL Administration Sodium Chloride 1,000 mls @ 75 mls/hr 05/10/18 00:45 05/13/18 00:45 Normal Saline - IV Not Given ASDIR MICHAEL Ceftriaxone Sodium 1 gm/ 50 mls @ 100 mls/hr 05/10/18 10:00 05/13/18 10:08 Dextrose IVPB 100 mls/hr DAILY MICHAEL Administration Metronidazole 500 mg in 100 mls @ 100 mls/hr 05/10/18 11:00 05/13/18 10:09 Flagyl 500mg Premixed Ivpb - IVPB 100 mls/hr Q8H-IV MICHAEL Administration Insulin Aspart 1 vial 05/10/18 07:00 05/13/18 06:13 Novolog Vial Sliding Scale - SQ Not Given TIDAC MICHAEL Protocol Metoclopramide HCl 5 mg 05/12/18 16:30 05/13/18 10:09 Reglan - PO 5 mg TIDAC MICHAEL Administration Metoprolol Tartrate 50 mg 05/10/18 10:00 05/13/18 10:08 Lopressor - PO 50 mg BID MICHAEL Administration Pantoprazole Sodium 40 mg 05/10/18 10:00 05/13/18 10:07 Protonix Iv IVPUSH 40 mg DAILY MICHAEL Administration Initial Vital Signs Temp Pulse Resp BP Pulse Ox 98.4 F 98 H 18 148/75 100 05/09/18 16:43 05/09/18 16:43 05/09/18 16:43 05/09/18 16:43 05/09/18 16:43 Assessment/Plan: Pt. is an 87yo Female with PMHx if NIDDM, HTN, DVTs, PE(last 2015), GERD, Diverticulosis, Hx. of colon polyps( last colonoscopy 2012-benign) presenting with abdominal pain for 1 day. # Ileus on CT abdomen: dilated Small bowel loops consistent with enteritis, improving , will advance the diet. # Acute Enteritis #Abdominal pain improving # Diverticulosis with no hx of diverticulitis #Positive for mesenteric lymph nodes repeat Ct as an outpatient. # UTI positive leuk esterase #T2DM with HgA1c 7.5 #HTN #HLD #Constipation # Hypomagnesemia #Hypophosphtemia #hypokalemia improving will order IV replacement. -IV ceftriaxone and flagyl continue - Gi consult/surgical consult appreciated -BGMs with coverage -continue home meds: lopressor 50 BID, Hydralazine 10mg, Norvasc 5mg -continue lipitor 10 dc stool softener since had x5 diarrhea. IVF NS@ 75ml/hr DVT Px; Eliquis
--- NOTE | 2018-05-13 14:54 | PN ---
Progress Note, Physician Chief Complaint: abdominal pain an diarrhea History of Present Illness: 87yo female MMP with abdominal pain for 1 day. Pt. states that it has been intermittent lasting ~30min but progressively worsening over the last day. Diarrhea has improved after stool softner was held. No further abdominal pain she is sitting up in bed. - Current Medication List Current Medications: Active Medications Acetaminophen (Tylenol -) 650 mg PO Q6H PRN PRN Reason: Fever Or Pain Last Admin: 05/12/18 22:37 Dose: 650 mg Amlodipine Besylate (Norvasc -) 5 mg PO DAILY [facility] Last Admin: 05/13/18 10:08 Dose: 5 mg Apixaban (Eliquis -) 2.5 mg PO BID [facility] Last Admin: 05/12/18 09:41 Dose: 2.5 mg Atorvastatin Calcium (Lipitor -) 10 mg PO HS [facility] Last Admin: 05/12/18 22:36 Dose: 10 mg Hydralazine HCl (Apresoline -) 10 mg PO DAILY [facility] Last Admin: 05/13/18 10:08 Dose: 10 mg Sodium Chloride (Normal Saline -) 1,000 mls @ 75 mls/hr IV ASDIR [facility] Last Admin: 05/13/18 00:45 Dose: Not Given Ceftriaxone Sodium 1 gm/ (Dextrose) 50 mls @ 100 mls/hr IVPB DAILY [facility] Last Admin: 05/13/18 10:08 Dose: 100 mls/hr Metronidazole (Flagyl 500mg Premixed Ivpb -) 500 mg in 100 mls @ 100 mls/hr IVPB Q8H-IV [facility] Last Admin: 05/13/18 10:09 Dose: 100 mls/hr Insulin Aspart (Novolog Vial Sliding Scale -) 1 vial SQ TIDAC [facility]; Protocol Last Admin: 05/13/18 12:39 Dose: Not Given Metoclopramide HCl (Reglan -) 5 mg PO TIDAC [facility] Last Admin: 05/13/18 10:09 Dose: 5 mg Metoprolol Tartrate (Lopressor -) 50 mg PO BID [facility] Last Admin: 05/13/18 10:08 Dose: 50 mg Pantoprazole Sodium (Protonix Iv) 40 mg IVPUSH DAILY [facility] Last Admin: 05/13/18 10:07 Dose: 40 mg - Objective Vital Signs: Vital Signs Temperature 98.2 F 05/13/18 10:00 Pulse Rate 59 L 05/13/18 10:00 Respiratory Rate 18 05/13/18 10:00 Blood Pressure 134/67 05/13/18 10:00 O2 Sat by Pulse Oximetry (%) 97 05/12/18 22:00 Vital Signs Period Temp Pulse Resp BP Sys/Dobbins Pulse Ox Last 24 Hr 97.7 F-98.2 F 59-75 18-20 116-143/66-96 97 Constitutional: Yes: Well Nourished, No Distress, Calm Eyes: Yes: Conjunctiva Clear, EOM Intact HENT: Yes: Atraumatic, Normocephalic Neck: Yes: Supple, Trachea Midline Cardiovascular: Yes: Regular Rate and Rhythm, S1, S2 Respiratory: Yes: Regular, CTA Bilaterally Gastrointestinal: Yes: Normal Bowel Sounds, Soft, Abdomen, Obese. No: Tenderness ...Rectal Exam: Yes: Deferred Genitourinary: No: CVA Tenderness - Left, CVA Tenderness - Right Extremities: No: Cool, Cyanosis Edema: No Peripheral Pulses WNL: Yes Peripheral Pulses: Left Radial: 2+, Right Radial: 2+, Left Doralis Pedis: 2+, Right Dorsalis Pedis: 2+, Left Femoral: 2+, Right Femoral: 2+ Integumentary: No: Incision, Jaundice Neurological: Yes: Alert, Oriented Psychiatric: Yes: Alert, Oriented Labs: CBC, BMP 05/12/18 05:30 05/12/18 05:30 Problem List - Problems (1) Abdominal pain Assessment/Plan: 87yo femlaqe PMH nausea vomiting and diarrhea, probably gastroenteritis. I would favor non-operative management. She does not require emergency surgery intervention at this time. Resume eloquis supportive medical care trend labs and replete electrolytes recall as needed Code(s): R10.9 - UNSPECIFIED ABDOMINAL PAIN Qualifiers: Abdominal location: epigastric Qualified Code(s): R10.13 - Epigastric pain (2) Chest pain Code(s): R07.9 - CHEST PAIN, UNSPECIFIED Qualifiers: Chest pain type: unspecified Qualified Code(s): R07.9 - Chest pain, unspecified (3) DVT prophylaxis Code(s): DFQ9221 - (4) Diabetes Code(s): E11.9 - TYPE 2 DIABETES MELLITUS WITHOUT COMPLICATIONS Qualifiers: Diabetes mellitus type: type 2 Diabetes mellitus complication status: without complication (5) Hypertension Code(s): I10 - ESSENTIAL (PRIMARY) HYPERTENSION (6) Pulmonary embolism Code(s): I26.99 - OTHER PULMONARY EMBOLISM WITHOUT ACUTE COR PULMONALE Qualifiers: Pulmonary embolism type: other Chronicity: acute Acute cor pulmonale presence: without acute cor pulmonale Qualified Code(s): I26.99 - Other pulmonary embolism without acute cor pulmonale
[2018-05-13 15:08] VITALS: BP 127/64; PULSE 57; TEMP 97.7
--- NOTE | 2018-05-13 16:32 | DS ---
Physical Exam: SUBJECTIVE: Patient seen and examined Patient is feeling better, no further diarrhea post stopping the stool softener. Vital Signs Temperature 97.7 F 05/13/18 06:00 Pulse Rate 74 05/13/18 06:00 Respiratory Rate 20 05/13/18 06:00 Blood Pressure 129/96 05/13/18 06:00 O2 Sat by Pulse Oximetry (%) 97 05/12/18 22:00 Initial Vital Signs Temp Pulse Resp BP Pulse Ox 98.4 F 98 H 18 148/75 100 05/09/18 16:43 05/09/18 16:43 05/09/18 16:43 05/09/18 16:43 05/09/18 16:43 GENERAL: The patient is awake, alert, and fully oriented, in no acute distress. EYES: PEERLA: EOMI; no scleral icterus NECK: no JVD; no lymphadenopathy LUNGS:CTA B/L; no rales, rhonchi or wheezing HEART: Regular rate and rhythm, S1, S2 without murmur, rub or gallop. ABDOMEN: Soft, none tender improved. positive for BS EXTREMITIES: 2+ pulses, warm, well-perfused, no edema. . PSYCH: Normal mood, normal affect. SKIN: Warm, dry, normal turgor, no rashes or lesions noted CBCD WBC 4.7 K/mm3 (4.0-10.0) 05/12/18 05:30 RBC 4.34 M/mm3 (3.60-5.2) 05/12/18 05:30 Hgb 12.2 GM/dL (10.7-15.3) 05/12/18 05:30 Hct 37.1 % (32.4-45.2) D 05/12/18 05:30 MCV 85.6 fl (80-96) 05/12/18 05:30 MCHC 32.9 g/dl (32.0-36.0) 05/12/18 05:30 RDW 13.7 % (11.6-15.6) 05/12/18 05:30 Plt Count 147 K/MM3 (134-434) 05/12/18 05:30 MPV 8.7 fl (7.5-11.1) 05/12/18 05:30 CMP Sodium 139 mmol/L (136-145) 05/12/18 05:30 Potassium 3.6 mmol/L (3.5-5.1) 05/12/18 05:30 Chloride 104 mmol/L (98-107) 05/12/18 05:30 Carbon Dioxide 28 mmol/L (21-32) 05/12/18 05:30 Anion Gap 7 MMOL/L (8-16) L 05/12/18 05:30 BUN 8 mg/dL (7-18) 05/12/18 05:30 Creatinine 0.7 mg/dL (0.55-1.3) 05/12/18 05:30 Creat Clearance w eGFR 78.79 (>60) 05/12/18 05:30 Random Glucose 157 mg/dL (74-106) H 05/12/18 05:30 Calcium 7.9 mg/dL (8.5-10.1) L 05/12/18 05:30 Total Bilirubin 1.0 mg/dL (0.2-1) 05/09/18 16:51 AST 31 U/L (15-37) 05/09/18 16:51 ALT 32 U/L (13-61) 05/09/18 16:51 Alkaline Phosphatase 104 U/L (45-117) 05/09/18 16:51 Total Protein 7.3 g/dl (6.4-8.2) 05/09/18 16:51 Albumin 3.7 g/dl (3.4-5.0) 05/09/18 16:51 CARDIAC ENZYMES Troponin I < 0.02 ng/ml (0.00-0.05) 05/09/18 16:51 Current Medications Generic Name Dose Route Start Last Admin Trade Name Geraldine PRN Reason Stop Dose Admin Acetaminophen 650 mg 05/11/18 21:14 05/12/18 22:37 Tylenol - PO 650 mg Q6H PRN Administration Fever Or Pain Amlodipine Besylate 5 mg 05/10/18 10:00 05/13/18 10:08 Norvasc - PO 5 mg DAILY MICHAEL Administration Apixaban 2.5 mg 05/10/18 10:00 05/12/18 09:41 Eliquis - PO 2.5 mg BID MICHAEL Administration Atorvastatin Calcium 10 mg 05/10/18 22:00 05/12/18 22:36 Lipitor - PO 10 mg HS MICHAEL Administration Hydralazine HCl 10 mg 05/10/18 10:00 05/13/18 10:08 Apresoline - PO 10 mg DAILY MICHAEL Administration Sodium Chloride 1,000 mls @ 75 mls/hr 05/10/18 00:45 05/13/18 00:45 Normal Saline - IV Not Given ASDIR MICHAEL Ceftriaxone Sodium 1 gm/ 50 mls @ 100 mls/hr 05/10/18 10:00 05/13/18 10:08 Dextrose IVPB 100 mls/hr DAILY [facility] Administration Metronidazole 500 mg in 100 mls @ 100 mls/hr 05/10/18 11:00 05/13/18 10:09 Flagyl 500mg Premixed Ivpb - IVPB 100 mls/hr Q8H-IV [facility]HAEL Administration Insulin Aspart 1 vial 05/10/18 07:00 05/13/18 06:13 Novolog Vial Sliding Scale - SQ Not Given TIDAC MICHAEL Protocol Metoclopramide HCl 5 mg 05/12/18 16:30 05/13/18 10:09 Reglan - PO 5 mg TIDAC MICHAEL Administration Metoprolol Tartrate 50 mg 05/10/18 10:00 05/13/18 10:08 Lopressor - PO 50 mg BID MIC[facility]EL Administration Pantoprazole Sodium 40 mg 05/10/18 10:00 05/13/18 10:07 Protonix Iv IVPUSH 40 mg DAILY [facility]EL Administration HOSPITAL COURSE: Date of Admission:05/10/18 Date of Discharge: 05/13/18 Pt. is an 87yo Female with PMHx if NIDDM, HTN, DVTs, PE(last 2015), GERD, Diverticulosis, Hx. of colon polyps(last colonoscopy 2012-benign) presenting with abdominal pain for 1 day. # Ileus on CT abdomen: dilated Small bowel loops consistent with enteritis, improved, completed, tolerating diet well, no further diarrhea post stopping the stool softner. # Acute Enteritis improved poa IV antibiotics #Abdominal pain improved as per GI due to gastroparesis , started the patient on Reglan, needs to follow with GI within 7 days. # Diverticulosis with no hx of diverticulitis #Positive for mesenteric lymph nodes repeat Ct as an outpatient. 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 # Hypomagnesemia repleted #Hypophosphtemia repleted #hypokalemia repleted completed IV ceftriaxone and flagyl, Gi consult/surgical consult appreciated, discussed with surgery ok to discharge the patient since resolved. continue home meds: lopressor 50 BID, Hydralazine 10mg, Norvasc 5mg, continue lipitor 10, continue Eliquis dc stool softener since had x5 diarrhea. continue home januvia and Glipizide. 05/12/18 05/13/18 05/13/18 16:51 05:36 12:25 POC Glucometer 118 109 137 Minutes to complete discharge: 35 Discharge Summary Reason For Visit: URINARY TRACT INFECTION ILEUS OF UNSPECIFIED TYPE Current Active Problems Abdominal pain (Acute) Ileus, unspecified (Acute) Urinary tract infection (Acute) Condition: Stable - Instructions Diet, Activity, Other Instructions: low fat/ low carbohydrate diet. no sugar. Please follow with within a week follow with surgeon if needed follow with your primary within a week. resume your home medications. we discontinued your Zocor (Simvastatin) instead please take Atorovastatin 10mg daily we dicontinued your nexium instead ordered Protonix, if the insurance does not cover Protonix continue with Nexium . continue your Januvia and Glipizide Referrals: Miles Nelson MD [Staff Physician] - 1 Week Dawit Jimenez MD [Staff Physician] - 2 Weeks Disposition: HOME - Home Medications Comprehensive Discharge Medication List: Ambulatory Orders Glipizide 10 mg PO DAILY 12/26/13 Amlodipine Besylate 5 mg PO DAILY 10/02/14 Calcium 600-Vit D3 200 Tablet 1 tab PO DAILY 01/22/18 Januvia 100 mg PO DAILY 01/22/18 Apixaban [Eliquis -] 2.5 mg PO BID tablet 05/13/18 Atorvastatin Ca [Lipitor] 10 mg PO HS #30 tablet 05/13/18 Metoclopramide HCl [Reglan -] 5 mg PO TIDAC #30 tablet 05/13/18 Metoprolol Tartrate [Lopressor -] 50 mg PO BID tablet 05/13/18 Pantoprazole Sodium [Protonix] 40 mg PO DAILY #30 tablet. 05/13/18 hydrALAZINE HCL [Apresoline -] 10 mg PO DAILY tablet 05/13/18 This patient is new to me today: No Emergency Visit: Yes ED Registration Date: 05/10/18 Care time: The patient presented to the Emergency Department on the above date and was hospitalized for further evaluation of their emergent condition. Critical Care patient: No - Discharge Referral Referred to [facility] No
== END 2018-05-13 17:45 | disposition home or self-care (01) | DRG 392 ==
LOC: JER 16:38 → JERBED 05-10 00:40 → OBSVTOIN 05-10 04:41 → J7W 05-10 05:22
PROVIDERS: ADMIT Internal Medicine; ATTEND Internal Medicine
DX: K52.9 Noninfective gastroenteritis and colitis, unspecified (principal); K56.7 Ileus, unspecified; N39.0 Urinary tract infection, site not specified; K57.90 Diverticulosis of intestine, part unspecified, without perforation or abscess without bleeding; I10 Essential (primary) hypertension; E78.5 Hyperlipidemia, unspecified; K59.00 Constipation, unspecified; E83.42 Hypomagnesemia; E83.39 Other disorders of phosphorus metabolism; E87.6 Hypokalemia; E11.9 Type 2 diabetes mellitus without complications; K21.9 Gastro-esophageal reflux disease without esophagitis
CPT/HCPCS: 36415; 71045-TC-FY; 74019-TC-FY; 74177-TC; 80048; 80053; 81003; 82272; 82962; 83036; 83690; 83735; 84100; 84484; 85025; 85027; 87086; 87804; 93005; 93010; 99283-25; G0378; J0131; J7030